=== PATIENT | male | born 1990 | race Caucasian/White ===

== ENCOUNTER 2016-06-26 01:24 | Inpatient (IN) | payer OTHER ==
[~2016-06-26] VITALS: Ht 180.3 cm; Wt 98.4 kg
[~2016-06-26 01:24] MED LIST: ASPI81TA9 PO; CARV6.252 PO; FURO20TA3 PO; LISI-338 PO; LOSA25TA PO; POTA10TA12 PO; SULF1TAB3 PO
--- NOTE | 2016-06-26 01:59 | ED.ADGEN ---
Past Medical History Past Medical History: CHF, Hypertension Additional Past Medical Histor: endocarditis Past Surgical History: No Surgical History Alcohol Use: None Drug Use: None Adult General Chief Complaint Chief Complaint: NAUSEA/VOMITING/DIARRHA HPI HPI Patient is a 25 year old male, with history of AICD pacemaker that was placed last month, congestive heart failure with a previously known EF of less than 20% , endocarditis, who presents emergency Department with a complaint of shortness of breath especially while lying flat, and cough with posttussive emesis over the past day. Patient denies any abdominal pain, denies any chest pain, denies any weakness numbness or tingling, denies any nausea, states that he is experiencing similar symptoms previously when he has had exacerbations of his congestive heart failure, but is uncertain if this is with tapping at this time. He denies any fevers or chills, any focal weakness in this or tingling, any injuries, any missed doses of medication, any new medications, any drugs alcohol or cigarettes. No swelling extremities, no history of DVT or PE. Review of Systems Review of Systems Constitutional: Denies fever or chills. [] Eyes: Denies change in visual acuity. [] HENT: Denies nasal congestion or sore throat. [] Respiratory: Cough, shortness of breath, posttussive emesis. [] Cardiovascular: Denies chest pain or edema. [] GI: Denies abdominal pain, nausea, vomiting, bloody stools or diarrhea. [] : Denies dysuria. [] Musculoskeletal: Denies back pain or joint pain. [] Integument: Denies rash. [] Neurologic: Denies headache, focal weakness or sensory changes. [] Endocrine: Denies polyuria or polydipsia. [] Lymphatic: Denies swollen glands. [] Psychiatric: Denies depression or anxiety. [] Allergies Allergies Allergies Coded Allergies Type Severity Reaction Last Updated Verified lisinopril Adverse Reaction Intermediate COUGH 05/10/16 Yes Physical Exam Physical Exam Constitutional: Well developed, well nourished, slightly anxious, non-toxic appearance. [] HENT: Normocephalic, atraumatic, bilateral external ears normal, oropharynx moist, no oral exudates, nose normal. [] Eyes: PERRLA, EOMI, conjunctiva normal, no discharge. [] Neck: Normal range of motion, no tenderness, supple, no stridor. [] Cardiovascular:Heart rate regular rhythm, no murmur , S1, S2, rubs or gallops. No chest or crepitus or tenderness. [] Lungs & Thorax: Bilateral breath sounds clear to auscultation, no wheezing rhonchi or rales. [] Abdomen: Bowel sounds normal, soft, no tenderness, no masses, no pulsatile masses. [] Skin: Warm, dry, no erythema, no rash. [] Back: No tenderness, no CVA tenderness. [] Extremities: No tenderness, no cyanosis, no clubbing, ROM intact, no edema. Negative Homans sign. [] Neurologic: Alert and oriented X 3, normal motor function, normal sensory function, no focal deficits noted. [] Psychologic: Affect normal, judgement normal, mood normal. [] Current Patient Data Vital Signs Vital Signs Date Time Temp Pulse Resp B/P Pulse Ox O2 Delivery O2 Flow Rate FiO2 06/26/16 01:35 98.2 111 26 150/88 100 Room Air 98.2 Lab Values Laboratory Tests Test 06/26/16 01:45 06/26/16 01:53 06/26/16 02:07 Sodium Level 137mmol/L (136-145) Potassium Level 3.6mmol/L (3.5-5.1) Chloride Level 99mmol/L (98-107) Carbon Dioxide Level 29mmol/L (21-32) Anion Gap 9 (6-14) Blood Urea Nitrogen 12mg/dL (8-26) Creatinine 1.0mg/dL (0.7-1.3) Estimated GFR (Cockcroft-Gault) 92.6 BUN/Creatinine Ratio 12 (6-20) Glucose Level 129mg/dL (70-99) H Calcium Level 9.0mg/dL (8.5-10.1) Total Bilirubin 1.6mg/dL (0.2-1.0) H Aspartate Amino Transferase (AST) 24U/L (15-37) Alanine Aminotransferase (ALT) 27U/L (16-63) Alkaline Phosphatase 75U/L (46-116) Troponin I Quantitative 0.021ng/mL (0.000-0.055) NE-Vjx-S-Type Natriuretic Peptide 44698gs/mL (0-124) H Total Protein 7.7g/dL (6.4-8.2) Albumin 3.5g/dL (3.4-5.0) Albumin/Globulin Ratio 0.8 (1.0-1.7) L Lipase 152U/L (73-393) White Blood Count 14.0x10^3/uL (4.0-11.0) H Red Blood Count 5.14x10^6/uL (4.30-5.70) Hemoglobin 13.0g/dL (13.0-17.5) Hematocrit 40.7% (39.0-53.0) Mean Corpuscular Volume 79fL (79-100) Mean Corpuscular Hemoglobin 25pg (25-35) Mean Corpuscular Hemoglobin Concent 32g/dL (31-37) Red Cell Distribution Width 16.3% (11.5-14.5) H Platelet Count 323x10^3/uL (140-400) Neutrophils (%) (Auto) 75% (31-73) H Lymphocytes (%) (Auto) 18% (24-48) L Monocytes (%) (Auto) 7% (0-9) Eosinophils (%) (Auto) 0% (0-3) Basophils (%) (Auto) 0% (0-3) Neutrophils # (Auto) 10.5x10^3uL (1.8-7.7) H Lymphocytes # (Auto) 2.5x10^3/uL (1.0-4.8) Monocytes # (Auto) 1.0x10^3/uL (0.0-1.1) Eosinophils # (Auto) 0.0x10^3/uL (0.0-0.7) Basophils # (Auto) 0.0x10^3/uL (0.0-0.2) Urine Collection Type Unknown Urine Color Anny Urine Clarity Clear Urine pH 5.5 Urine Specific [place] >=1.030 Urine Protein >=300mg/dL (NEG-TRACE) Urine Glucose (UA) Negativemg/dL (NEG) Urine Ketones (Stick) Tracemg/dL (NEG) Urine Blood Trace (NEG) Urine Nitrite Negative (NEG) Urine Bilirubin Small (NEG) Urine Urobilinogen Dipstick 2.0mg/dL (0.2 mg/dL) Urine Leukocyte Esterase Negative (NEG) Urine RBC Occ/HPF (0-2) Urine WBC Occ/HPF (0-4) Urine Squamous Epithelial Cells Mod/LPF Urine Bacteria Many/HPF (0-FEW) Urine Hyaline Casts Many/HPF Urine Mucus Mod/LPF Influenza Type A Antigen Negative (NEGATIVE) Influenza Type B Antigen Negative (NEGATIVE) Laboratory Tests 06/26/16 01:53 Laboratory Tests 06/26/16 01:45 EKG EKG EC: Sinus tachycardia, heart rate 109 bpm, contour abnormalities noted in the anterior and lateral leads, left ventricle hypertrophy noted, with T- wave inversions and ST depression noted in V5 and V6, no ST elevations noted, QTc of 435, NM 152, QRS of 104. Abnormal ECG, as interpreted by me. Unable to compare to prior. [] Radiology/Procedures Radiology/Procedures Chest x-ray: One view: AICD in place, with significant cardiomegaly, cephalization, consistent with congestive heart failure. No pneumothorax, no bone abnormalities. As interpreted by me. Course & Med Decision Making Course & Med Decision Making Pertinent Labs and Imaging studies reviewed. (See chart for details) Patient's complaint of orthopnea, in conjunction with his examination, laboratory studies with a BNP of greater than 13,000 and x-ray consistent with cephalization, consistent with CHF exacerbation. Patient noted to have mildly elevated bilirubin, may be consistent with his underlying CHF, I did discuss this with patient, he takes Lasix 20 mg daily, total 40mg IV was given in the ED , he is agreeable for patient to the hospital for additional evaluation and monitoring, is resting comfortably at this time, oxygen saturation and heart rate are stable on the monitor. Will admit to the cardiac telemetry floor, with consultation placed for Dr. Rojas, who has seen the patient previously, although his recent AICD placement occurred at [facility]. Findings as above discussed with Dr. Casillas, patient accepted to his service as a full admission to the cardiac telemetry floor, with bridge orders placed at stated. Patient remained stable and comfortable during his ED course, transfer to the floor without issue. Dragon Disclaimer Dragon Disclaimer This electronic medical record was generated, in whole or in part, using a voice recognition dictation system. Departure Impression: Primary Impression: CHF exacerbation Disposition: ADMITTED INPATIENT Admitting Physician: Roni Casillas Condition: IMPROVED Problem Qualifiers Primary Impression: CHF exacerbation Congestive heart failure type: unspecified congestive heart failure type Qualified Code: I50.9 - Heart failure, unspecified MILY LANIER DO Jun 26, 2016 01:59
[2016-06-26 02:02] LABS: BASO % 0 % (0-3); EOS % 0 % (0-3); HEMATOCRIT 40.7 % (39.0-53.0); LYMPH # 2.5 x10^3/uL (1.0-4.8); LYMPH % 18 % (24-48); MEAN CORPUSCULAR HEMOGLOBIN 25 pg (25-35); MEAN CORPUSCULAR HGB CONC 32 g/dL (31-37); MEAN CORPUSCULAR VOLUME 79 fL (79-100); MONO % 7 % (0-9); NEUT % 75 % (31-73); PLATELET COUNT 323 x10^3/uL (140-400); RED BLOOD COUNT 5.14 x10^6/uL (4.30-5.70); RED CELL DISTRIBUTION WIDTH 16.3 % (11.5-14.5)
[2016-06-26 02:28] LABS: GFR 92.6; POTASSIUM 3.6 mmol/L (3.5-5.1)
[2016-06-26 02:33] LABS: ALBUMIN 3.5 g/dL (3.4-5.0); ALBUMIN/GLOBULIN RATIO 0.8 (1.0-1.7); TOTAL BILIRUBIN 1.6 mg/dL (0.2-1.0); TOTAL PROTEIN 7.7 g/dL (6.4-8.2)
[2016-06-26 02:43] LABS: BILIRUBIN,URINE SMALL (NEG); GLUCOSE,URINE NEGATIVE (NEG); NITRITE,URINE NEGATIVE (NEG); PH,URINE 5.5; PROTEIN,URINE >=300 mg/dL (NEG-TRACE)
[2016-06-26 02:54] LABS: OBC FLU VALID
[2016-06-26 03:14] LABS: BACTERIA,URINE MANY /HPF (0-FEW); RBC,URINE OCC /HPF (0-2); SQUAMOUS EPITHELIAL CELL,UR MOD /LPF; WBC,URINE OCC /HPF (0-4)
[2016-06-26] MEDS ORDERED: FUROSEMIDE 40 MG/4 ML VIAL IVP ONE (03:30)
[2016-06-26] MEDS ORDERED: ACETAMINOPHEN 325 MG TABLET. PO PRN ×2 (04:30→13:30)
[2016-06-26] MEDS ORDERED: ONDANSETRON PF 4 MG/2 ML VIAL. IV PRN ×2 (04:30→13:30)
[2016-06-26 04:45] VITALS: BP 126/87
[2016-06-26] MEDS ORDERED: METO100T11 PO (05:07)
[2016-06-26] MEDS ORDERED: DIGO125T PO (05:07)
[2016-06-26 07:00] VITALS: BP 121/76
--- NOTE | 2016-06-26 07:25 | ACF ---
Admission Forms Criteria HEART FAILURE: COMMON COMPLICATIONS Clinical Indications for Inpatient Care (Place 'X' for any and all applicable criteria): Ongoing inpatient care may be indicated for heart failure with ANY ONE of the following (1)(2)(3)(4)(5): [ ]I. Ongoing need for care for primary condition requiring frequent therapy adjustments because of changes in cardiac function (eg, drug dosage changes for drugs that are renally metabolized) [ ]II. New-onset heart failure [ ]III. Heart failure with decreased urine output not responsive to attempts to optimize volume status [ ]IV. Acute cardiac ischemia causing or associated with failure [X]V. Complications of heart failure, including ANY ONE of the following: [ ]a) Pericardial effusion [ ]b) Symptomatic pleural effusion [ ]c) O2 saturation <90% or PO2 < 60 mm Hg (8.0 kPa) on room air or require baseline supplemental O2 [ ]d) Tachypnea [X]e) Dyspnea [ ]f) Syncope [ ]g) Change in mental status [ ]h) Acute renal insufficiency that is severe (reduction of more than 50% in estimated glomerular filtration rate from baseline) or progressive reduction of more than 25% in estimated glomerular filtration rate from baseline, with creatinine continuing to rise) [ ]i) Hemodynamic instability [ ]j) Anasarca [ ]k) Clinically significant metabolic abnormalities due to heart failure (eg, new-onset metabolic acidosis) Extended stay beyond goal length of stay for primary condition may be needed until ALL of the following are present(1)(3): [ ]a) Stable and effective diuretic regimen established (or patient on stable dialysis regimen if in chronic renal failure) [ ]b) Breathing comfortably at rest [ ]c) Saturation of arterial oxygen greater than 90% or at acceptable baseline [ ]d) Pulmonary edema absent or improved [ ]e) Hemodynamic stability [ ]f) Volume status acceptable on oral medication [ ]g) Peripheral or sacral edema absent or improved [ ]h) Renal function stable and manageable at a lower level of care [ ]i) Complications (eg, pleural effusion) resolved or manageable at a lower level of care [ ]j) Patient or caregiver has received written discharge instructions or educational material addressing activity level, diet, discharge medications, follow-up appointment, weight monitoring, and what to do if symptoms worsen The original [facility] content created by [employer] has been revised. The portions of the content which have been revised are identified through the use of italic text or in bold, and [facility] has neither reviewed nor approved the modified material.All other unmodified content is copyright [facility]. Please see references footnoted in the original [facility] edition 2016 Admission Criteria Met?: Yes CINDY PONCE Jun 26, 2016 07:25
[2016-06-26] MEDS ORDERED: DIGOXIN 125 MCG TABLET PO SCH (10:00)
[2016-06-26] MEDS ORDERED: METOPROLOL SUCC 24HR ER 100 MG TAB.ER.24H. PO SCH (10:00)
[2016-06-26] MEDS ORDERED: FUROSEMIDE 20 MG TABLET PO SCH (10:00)
[2016-06-26] MEDS ORDERED: ASPIRIN ENTERIC COATED 81 MG TABLET.DR. PO SCH (10:00)
[2016-06-26] MEDS ORDERED: LOSARTAN POTASSIUM 25 MG TABLET. PO SCH (10:00)
[2016-06-26] MEDS ORDERED: POTASSIUM CHLORIDE 10 MEQ TABLET.ER. PO SCH (10:00)
--- NOTE | 2016-06-26 10:08 | RAD ---
AP portable chest radiograph 06/26/2016 Clinical History: Shortness of breath. An AP portable erect digital radiograph of the chest was obtained. Comparison study is dated 05/10/2016. A pacemaker has been placed to overlie the left anterior chest. A lead extends to overlie the right ventricle of the heart. The cardiac silhouette is moderately enlarged. The thoracic aorta is minimally tortuous. Increased opacity is seen involving the inferior aspect of the right lower lobe consistent with atelectasis and/or infiltrate. No pneumothorax or pleural effusion is seen. The osseous structures are unchanged. Impression: 1. Moderate cardiomegaly. 2. Right lower lobe atelectasis and or infiltrate.
[2016-06-26 11:00] VITALS: BP 105/72
--- NOTE | 2016-06-26 11:22 | PDOC2 ---
CARDIAC CONSULT DATE OF CONSULT Date of Consult DATE: 06/26/16 TIME: 11:18 REASON FOR CONSULT Reason for Consult: CHF exacerbation REFERRING PHYSICIAN Referring Physician: Dr. Lance Cabral SOURCE Source: Chart review, Patient HISTORY OF PRESENT ILLNESS HISTORY OF PRESENT ILLNESS 25 year old male with NICMP and LVEF < 20% previously referred to [facility]. Had ICD implanted there in the last 4 weeks. Four day history of chest pain through entire chest, vomiting, and malaise. States he was not going to call [facility] until this afternoon to arrange evaluation/follow up care. Noted that patient's "story" has varied with each provider that has questioned him. Subsequently stated CP was sharp and at ICD implantation site. Does not weigh at home. NT-proBNP of 13,872 with normal troponin levels. Now denies CP. PAST MEDICAL HISTORY Cardiovascular: CHF (chronic systolic), HTN, [place] (age 18 in [facility]), Other (NICMP - LVEF < 20%; ICD implanted @ [facility]) PAST SURGICAL HISTORY Past Surgical History: Pacemaker (ICD - brand unknown) FAMILY HISTORY Family History: Heart Disease, Hypertension, Hypothyroidism SOCIAL HISTORY Smoke: No ALCOHOL: none Drugs: None Lives: with Family CURRENT MEDICATIONS CURRENT MEDICATIONS Current Medications Medications (Trade) Dose Ordered Sig/Heather Route PRN Reason Start Time Stop Time Status Last Admin Dose Admin Furosemide (Lasix) 40 mg 1X ONCE IVP 06/26/16 03:30 06/26/16 03:31 DC 06/26/16 03:20 Aspirin (Ecotrin) 81 mg DAILYWBKFT PO 06/26/16 10:00 06/26/16 09:59 Digoxin (Lanoxin) 125 mcg DAILY PO 06/26/16 10:00 06/26/16 09:59 Furosemide (Lasix) 40 mg DAILY PO 06/26/16 10:00 06/26/16 09:59 Losartan Potassium (Cozaar) 25 mg DAILY PO 06/26/16 10:00 06/26/16 10:00 Metoprolol Succinate (Toprol Xl) 100 mg DAILY PO 06/26/16 10:00 06/26/16 09:59 Potassium Chloride (Klor-Con) 10 meq BIDWMEALS PO 06/26/16 10:00 06/26/16 09:59 ALLERGIES ALLERGIES: Coded Allergies: lisinopril (Verified Adverse Reaction, Intermediate, COUGH, 05/10/16) VITALS VITALS Vital Signs Date Time Temp Pulse Resp B/P Pulse Ox O2 Delivery O2 Flow Rate FiO2 06/26/16 10:00 88 121/76 06/26/16 07:00 97.3 16 94 Room Air 97.3 LABS Lab: Laboratory Tests Test 06/26/16 01:45 06/26/16 01:53 06/26/16 02:07 06/26/16 08:00 Sodium Level 137mmol/L (136-145) Potassium Level 3.6mmol/L (3.5-5.1) Chloride Level 99mmol/L (98-107) Carbon Dioxide Level 29mmol/L (21-32) Anion Gap 9 (6-14) Blood Urea Nitrogen 12mg/dL (8-26) Creatinine 1.0mg/dL (0.7-1.3) Estimated GFR (Cockcroft-Gault) 92.6 BUN/Creatinine Ratio 12 (6-20) Glucose Level 129mg/dL (70-99) Calcium Level 9.0mg/dL (8.5-10.1) Total Bilirubin 1.6mg/dL (0.2-1.0) Aspartate Amino Transf (AST/SGOT) 24U/L (15-37) Alanine Aminotransferase (ALT/SGPT) 27U/L (16-63) Alkaline Phosphatase 75U/L (46-116) Troponin I Quantitative 0.021ng/mL (0.000-0.055) 0.017ng/mL (0.000-0.055) QR-Cir-I-Type Natriuretic Peptide 59147op/mL (0-124) Total Protein 7.7g/dL (6.4-8.2) Albumin 3.5g/dL (3.4-5.0) Albumin/Globulin Ratio 0.8 (1.0-1.7) Lipase 152U/L (73-393) White Blood Count 14.0x10^3/uL (4.0-11.0) Red Blood Count 5.14x10^6/uL (4.30-5.70) Hemoglobin 13.0g/dL (13.0-17.5) Hematocrit 40.7% (39.0-53.0) Mean Corpuscular Volume 79fL (79-100) Mean Corpuscular Hemoglobin 25pg (25-35) Mean Corpuscular Hemoglobin Concent 32g/dL (31-37) Red Cell Distribution Width 16.3% (11.5-14.5) Platelet Count 323x10^3/uL (140-400) Neutrophils (%) (Auto) 75% (31-73) Lymphocytes (%) (Auto) 18% (24-48) Monocytes (%) (Auto) 7% (0-9) Eosinophils (%) (Auto) 0% (0-3) Basophils (%) (Auto) 0% (0-3) Neutrophils # (Auto) 10.5x10^3uL (1.8-7.7) Lymphocytes # (Auto) 2.5x10^3/uL (1.0-4.8) Monocytes # (Auto) 1.0x10^3/uL (0.0-1.1) Eosinophils # (Auto) 0.0x10^3/uL (0.0-0.7) Basophils # (Auto) 0.0x10^3/uL (0.0-0.2) Urine Collection Type Unknown Urine Color Anny Urine Clarity Clear Urine pH 5.5 Urine Specific [place] >=1.030 Urine Protein >=300mg/dL (NEG-TRACE) Urine Glucose (UA) Negativemg/dL (NEG) Urine Ketones (Stick) Tracemg/dL (NEG) Urine Blood Trace (NEG) Urine Nitrite Negative (NEG) Urine Bilirubin Small (NEG) Urine Urobilinogen Dipstick 2.0mg/dL (0.2 mg/dL) Urine Leukocyte Esterase Negative (NEG) Urine RBC Occ/HPF (0-2) Urine WBC Occ/HPF (0-4) Urine Squamous Epithelial Cells Mod/LPF Urine Bacteria Many/HPF (0-FEW) Urine Hyaline Casts Many/HPF Urine Mucus Mod/LPF Influenza Type A Antigen Negative (NEGATIVE) Influenza Type B Antigen Negative (NEGATIVE) ECHOCARDIOGRAM ECHOCARDIOGRAM 04/22/2016: TTE: The Left Ventricle is moderately dilated. Left ventricle ejection fraction is severely impaired. The Ejection Fraction is <20%. There is severe global hypokinesis There is no significant aortic valvular stenosis. Doppler and Color Flow revealed no significant aortic regurgitation. Doppler and Color Flow revealed mild to moderate mitral regurgitation. Doppler and Color Flow revealed mild tricuspid regurgitation. The PA pressure was estimated at 34 mmHg. ASSESSMENT/PLAN ASSESSMENT/PLAN 1. chronic systolic HF with depressed LV function; EF < 20% no crackles, no edema and no evidence of CHF on CXR compensated - continue usual medical management 2. non-ischemic CMP now with ICD, brand unknown intermittent sharp pain at pocket site; site healing well; no evidence of erythema, warmth, ecchymosis or drainage continue medical management 3. HTN continue medications Agreeable with discharge when planned by primary service Extensive conversation with pt regarding immediate notification of Heart Failure Clinic @ [facility] of any symptoms; advised contacting during week, rather than waiting to the weekend Follow up @ [facility] advised for next week Recommended ICD implant site evaluation by implanting physician Problems: CHINO ORR APRN Jun 26, 2016 11:22
--- NOTE | 2016-06-26 13:31 | PDOC1 ---
History and Physical Date of Admission Date of Admission 06/26/16 Identification/Chief Complaint Chief Complaint sob Problems: Source Source: Chart review, Patient History of Present Illness History of Present Illness HPI HPI Patient is a 25 year old male, with history of AICD pacemaker that was placed last month, congestive heart failure with a previously known EF of less than 20% , endocarditis, who presents emergency Department with a complaint of shortness of breath especially while lying flat. Pt looks sleepy today. He said he also has some vomiting yesterday, PT sob better now with lasix 40MG IV in ER, home dose 20mg daily, saying he is compiant to his meds. denies chest pain. Past Medical History Cardiovascular: CHF (chronic systolic), HTN, NM (age 18 in [facility]), Other (NICMP - LVEF < 20%; ICD implanted @ [facility]) Pulmonary: No pertinent hx CENTRAL NERVOUS SYSTEM: Other GI: No pertinent hx Heme/Onc: No pertinent hx Hepatobiliary: No pertinent hx Psych: No pertinent hx Rheumatologic: No pertinent hx Infectious disease: No pertinent hx Renal/: No pertinent hx Endocrine: No pertinent hx Past Surgical History Past Surgical History: Pacemaker (ICD - brand unknown) Family History Family History: Heart Disease, Hypertension, Hypothyroidism Social History Smoke: No ALCOHOL: none Drugs: None Current Problem List Problem List Problems Medical Problems: (1) CHF exacerbation Status: Acute Current Medications Current Medications Current Medications Medications (Trade) Dose Ordered Sig/Heather Start Time Stop Time Status Last Admin Dose Admin Acetaminophen (Tylenol) 650 mg PRN Q4HRS PRN 06/26/16 04:30 06/27/16 04:29 Aspirin (Ecotrin) 81 mg DAILYWBKFT 06/26/16 10:00 06/26/16 09:59 81 MG Digoxin (Lanoxin) 125 mcg DAILY 06/26/16 10:00 06/26/16 09:59 125 MCG Furosemide (Lasix) 40 mg DAILY 06/26/16 10:00 06/26/16 09:59 40 MG Losartan Potassium (Cozaar) 25 mg DAILY 06/26/16 10:00 06/26/16 10:00 25 MG Metoprolol Succinate (Toprol Xl) 100 mg DAILY 06/26/16 10:00 06/26/16 09:59 100 MG Ondansetron HCl (Zofran) 4 mg PRN Q8HRS PRN 06/26/16 04:30 06/27/16 04:29 Potassium Chloride (Klor-Con) 10 meq BIDWMEALS 06/26/16 10:00 06/26/16 09:59 10 MEQ Allergies Allergies Allergies Coded Allergies Type Severity Reaction Last Updated Verified lisinopril Adverse Reaction Intermediate COUGH 05/10/16 Yes ROS Review of System CONSTITUTIONAL: No fever or chills EYES: No recent changes SKIN: No rash or itching CARDIOVASCULAR: No chest pain, syncope, palpitations, or edema RESPIRATORY: No SOB or cough GASTROINTESTINAL: No nausea, vomiting or abdominal pain NEUROLOGICAL: No headaches or weakness ENDOCRINE: No cold or heat intolerance GENITOURINARY: No urgency or frequency of urination MUSCULOSKELETAL: No back pain or joint pain LYMPHATICS: No enlarged lymph nodes PSYCHIATRIC: No anxiety or depression Physical Exam Physical Exam GEN.: No apparent distress. Alert and oriented. HEENT: Head is normocephalic, atraumatic NECK: Supple. LUNGS: Clear to auscultation. HEART: RRR, S1, S2 present. Peripheral pulses intact ABDOMEN: Soft, nontender. Positive bowel sounds. EXTREMITIES: Without any cyanosis. NEUROLOGIC: Normal speech, normal tone PSYCHIATRIC: Normal affect, normal mood. SKIN: No ulcerations Vitals Vitals Vital Signs Date Time Temp Pulse Resp B/P Pulse Ox O2 Delivery O2 Flow Rate FiO2 06/26/16 11:00 98.3 67 16 105/72 96 Room Air 98.3 Labs Labs Laboratory Tests Test 06/26/16 01:45 06/26/16 01:53 06/26/16 02:07 06/26/16 08:00 Sodium Level 137mmol/L (136-145) Potassium Level 3.6mmol/L (3.5-5.1) Chloride Level 99mmol/L (98-107) Carbon Dioxide Level 29mmol/L (21-32) Anion Gap 9 (6-14) Blood Urea Nitrogen 12mg/dL (8-26) Creatinine 1.0mg/dL (0.7-1.3) Estimated GFR (Cockcroft-Gault) 92.6 BUN/Creatinine Ratio 12 (6-20) Glucose Level 129mg/dL (70-99) Calcium Level 9.0mg/dL (8.5-10.1) Total Bilirubin 1.6mg/dL (0.2-1.0) Aspartate Amino Transf (AST/SGOT) 24U/L (15-37) Alanine Aminotransferase (ALT/SGPT) 27U/L (16-63) Alkaline Phosphatase 75U/L (46-116) Troponin I Quantitative 0.021ng/mL (0.000-0.055) 0.017ng/mL (0.000-0.055) VU-Zab-A-Type Natriuretic Peptide 31801jx/mL (0-124) Total Protein 7.7g/dL (6.4-8.2) Albumin 3.5g/dL (3.4-5.0) Albumin/Globulin Ratio 0.8 (1.0-1.7) Lipase 152U/L (73-393) White Blood Count 14.0x10^3/uL (4.0-11.0) Red Blood Count 5.14x10^6/uL (4.30-5.70) Hemoglobin 13.0g/dL (13.0-17.5) Hematocrit 40.7% (39.0-53.0) Mean Corpuscular Volume 79fL (79-100) Mean Corpuscular Hemoglobin 25pg (25-35) Mean Corpuscular Hemoglobin Concent 32g/dL (31-37) Red Cell Distribution Width 16.3% (11.5-14.5) Platelet Count 323x10^3/uL (140-400) Neutrophils (%) (Auto) 75% (31-73) Lymphocytes (%) (Auto) 18% (24-48) Monocytes (%) (Auto) 7% (0-9) Eosinophils (%) (Auto) 0% (0-3) Basophils (%) (Auto) 0% (0-3) Neutrophils # (Auto) 10.5x10^3uL (1.8-7.7) Lymphocytes # (Auto) 2.5x10^3/uL (1.0-4.8) Monocytes # (Auto) 1.0x10^3/uL (0.0-1.1) Eosinophils # (Auto) 0.0x10^3/uL (0.0-0.7) Basophils # (Auto) 0.0x10^3/uL (0.0-0.2) Urine Collection Type Unknown Urine Color Anny Urine Clarity Clear Urine pH 5.5 Urine Specific [place] >=1.030 Urine Protein >=300mg/dL (NEG-TRACE) Urine Glucose (UA) Negativemg/dL (NEG) Urine Ketones (Stick) Tracemg/dL (NEG) Urine Blood Trace (NEG) Urine Nitrite Negative (NEG) Urine Bilirubin Small (NEG) Urine Urobilinogen Dipstick 2.0mg/dL (0.2 mg/dL) Urine Leukocyte Esterase Negative (NEG) Urine RBC Occ/HPF (0-2) Urine WBC Occ/HPF (0-4) Urine Squamous Epithelial Cells Mod/LPF Urine Bacteria Many/HPF (0-FEW) Urine Hyaline Casts Many/HPF Urine Mucus Mod/LPF Influenza Type A Antigen Negative (NEGATIVE) Influenza Type B Antigen Negative (NEGATIVE) Laboratory Tests Test 06/26/16 01:45 06/26/16 01:53 06/26/16 02:07 06/26/16 08:00 Sodium Level 137mmol/L (136-145) Potassium Level 3.6mmol/L (3.5-5.1) Chloride Level 99mmol/L (98-107) Carbon Dioxide Level 29mmol/L (21-32) Anion Gap 9 (6-14) Blood Urea Nitrogen 12mg/dL (8-26) Creatinine 1.0mg/dL (0.7-1.3) Estimated GFR (Cockcroft-Gault) 92.6 BUN/Creatinine Ratio 12 (6-20) Glucose Level 129mg/dL (70-99) Calcium Level 9.0mg/dL (8.5-10.1) Total Bilirubin 1.6mg/dL (0.2-1.0) Aspartate Amino Transf (AST/SGOT) 24U/L (15-37) Alanine Aminotransferase (ALT/SGPT) 27U/L (16-63) Alkaline Phosphatase 75U/L (46-116) Troponin I Quantitative 0.021ng/mL (0.000-0.055) 0.017ng/mL (0.000-0.055) MN-Rej-Z-Type Natriuretic Peptide 91648st/mL (0-124) Total Protein 7.7g/dL (6.4-8.2) Albumin 3.5g/dL (3.4-5.0) Albumin/Globulin Ratio 0.8 (1.0-1.7) Lipase 152U/L (73-393) White Blood Count 14.0x10^3/uL (4.0-11.0) Red Blood Count 5.14x10^6/uL (4.30-5.70) Hemoglobin 13.0g/dL (13.0-17.5) Hematocrit 40.7% (39.0-53.0) Mean Corpuscular Volume 79fL (79-100) Mean Corpuscular Hemoglobin 25pg (25-35) Mean Corpuscular Hemoglobin Concent 32g/dL (31-37) Red Cell Distribution Width 16.3% (11.5-14.5) Platelet Count 323x10^3/uL (140-400) Neutrophils (%) (Auto) 75% (31-73) Lymphocytes (%) (Auto) 18% (24-48) Monocytes (%) (Auto) 7% (0-9) Eosinophils (%) (Auto) 0% (0-3) Basophils (%) (Auto) 0% (0-3) Neutrophils # (Auto) 10.5x10^3uL (1.8-7.7) Lymphocytes # (Auto) 2.5x10^3/uL (1.0-4.8) Monocytes # (Auto) 1.0x10^3/uL (0.0-1.1) Eosinophils # (Auto) 0.0x10^3/uL (0.0-0.7) Basophils # (Auto) 0.0x10^3/uL (0.0-0.2) Urine Collection Type Unknown Urine Color Anny Urine Clarity Clear Urine pH 5.5 Urine Specific [place] >=1.030 Urine Protein >=300mg/dL (NEG-TRACE) Urine Glucose (UA) Negativemg/dL (NEG) Urine Ketones (Stick) Tracemg/dL (NEG) Urine Blood Trace (NEG) Urine Nitrite Negative (NEG) Urine Bilirubin Small (NEG) Urine Urobilinogen Dipstick 2.0mg/dL (0.2 mg/dL) Urine Leukocyte Esterase Negative (NEG) Urine RBC Occ/HPF (0-2) Urine WBC Occ/HPF (0-4) Urine Squamous Epithelial Cells Mod/LPF Urine Bacteria Many/HPF (0-FEW) Urine Hyaline Casts Many/HPF Urine Mucus Mod/LPF Influenza Type A Antigen Negative (NEGATIVE) Influenza Type B Antigen Negative (NEGATIVE) VTE Prophylaxis Ordered VTE Prophylaxis Devices: Yes VTE Pharmacological Prophylaxi: Yes Assessment/Plan Assessment/Plan 1. acute systolic CHF exacerbation EF 20% 2. post ICD 3. NON Ischimic cardiomyopathy 4. HTN 5. H/O ENdocarditis plan 1. fu card 2. dc tmr if stable 3, on dig, losartan increase lasix to 40mg daily SHAWN BASS MD Jun 26, 2016 13:31
--- NOTE | 2016-06-26 14:23 | PDOC3 ---
Discharge Summary [facility] Date of Admission: Jun 26, 2016 Discharge Date: Jun 26, 2016 Admitting Diagnosis 1. acute systolic CHF exacerbation EF 20% 2. post ICD 3. NON Ischimic cardiomyopathy 4. HTN 5. H/O ENdocarditis Problems: Final Diagnosis Problems Medical Problems: (1) CHF exacerbation Status: Acute CONSULTS [place] Brief Hospital Course Patient is a 25 year old male, with history of AICD pacemaker that was placed last month, congestive heart failure with a previously known EF of less than 20% , endocarditis, who presents emergency Department with a complaint of shortness of breath especially while lying flat. Pt looks sleepy today. He said he also has some vomiting yesterday, PT sob better now with lasix 40MG IV in ER, home dose 20mg daily, saying he is compiant to his meds. denies chest pain. Pt improved with lasix 40mg iv x1 in ER, home lasix 20mg daily. pt has no SOB, LUNG sounds clear, cont same dose. dc home, dc time 35min Patient History: Family history: Cardiovascular disease (situation) grandfather Family history: Diabetes mellitus (situation) grandfather Family history: Hypertension (situation) grandfather Problems: Disposition home CONDITION AT DISCHARGE: Improved Diet cardiac Scheduled Aspirin (Aspirin Ec) 81 MG PO DAILYWBKFT Digoxin (Digoxin) 1 TAB PO DAILY (Reported) Furosemide (Furosemide) 20 MG PO DAILY Losartan Potassium (Cozaar) 25 MG PO DAILY Metoprolol Succinate (Metoprolol Succinate ( Xl )) 1 TAB PO DAILY (Reported) Potassium Chloride (Klor-Con M10) 10 MEQ PO BID Follow Up pcp and card in 2weeks SHAWN BASS MD Jun 26, 2016 14:23
--- NOTE | 2016-06-26 14:55 | EKG ---
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
[2016-06-26 15:00] VITALS: BP 108/73
== END 2016-06-26 17:02 | disposition home or self-care (01) | DRG 293 ==
LOC: ER 01:24 → 2 SOUTH 03:13
PROVIDERS: ADMIT Internal Medicine; ATTEND Internal Medicine
DX: I11.0 Hypertensive heart disease with heart failure (principal); Z95.810 Presence of automatic (implantable) cardiac defibrillator; I50.23 Acute on chronic systolic (congestive) heart failure; R11.2 Nausea with vomiting, unspecified; I42.9 Cardiomyopathy, unspecified; I25.2 Old myocardial infarction; Z82.49 Family history of ischemic heart disease and other diseases of the circulatory system; Z83.49 Family history of other endocrine, nutritional and metabolic diseases; Z83.3 Family history of diabetes mellitus; Z79.82 Long term (current) use of aspirin; Z98.890 Other specified postprocedural states; Z79.899 Other long term (current) drug therapy; Z88.8 Allergy status to other drugs, medicaments and biological substances
CPT/HCPCS: 36415; 71010; 80053; 81001; 83690; 83880; 84484; 85027; 87086; 87804; 93005; 96374; J1940; 99285-25

== ENCOUNTER 2018-05-21 20:52 | Inpatient (IN) | payer OTHER ==
[~2018-05-21] VITALS: Ht 177.8 cm; Wt 125.9 kg
[~2018-05-21 20:52] MED LIST changes: +ASPI-612 PO; -ASPI81TA9 PO; +CARV6.2511 PO; -CARV6.252 PO; +DIGO125T PO; +METO-247 PO; +SULF-143 PO; -SULF1TAB3 PO
[2018-05-21 21:24] LABS: BASO # 0.1 x10^3/uL (0.0-0.2); BASO % 1 % (0-3); EOS # 0.2 x10^3/uL (0.0-0.7); EOS % 2 % (0-3); HEMATOCRIT 38.8 % (39.0-53.0); HEMOGLOBIN 13.6 g/dL (13.0-17.5); LYMPH # 2.5 x10^3/uL (1.0-4.8); LYMPH % 23 % (24-48); MEAN CORPUSCULAR HEMOGLOBIN 29 pg (25-35); MEAN CORPUSCULAR HGB CONC 35 g/dL (31-37); MEAN CORPUSCULAR VOLUME 84 fL (79-100); MONO # 0.8 x10^3/uL (0.0-1.1); MONO % 7 % (0-9); NEUT # 7.4 x10^3uL (1.8-7.7); NEUT % 68 % (31-73); PLATELET COUNT 207 x10^3/uL (140-400); RED BLOOD COUNT 4.65 x10^6/uL (4.30-5.70); RED CELL DISTRIBUTION WIDTH 13.2 % (11.5-14.5); WHITE BLOOD COUNT 10.8 x10^3/uL (4.0-11.0)
[2018-05-21 21:35] LABS: CREATININE 0.9 mg/dL (0.7-1.3); GFR 102.8; POTASSIUM 3.6 mmol/L (3.5-5.1)
[2018-05-21 21:47] LABS: ALBUMIN 3.7 g/dL (3.4-5.0); ALBUMIN/GLOBULIN RATIO 0.9 (1.0-1.7); TOTAL BILIRUBIN 0.3 mg/dL (0.2-1.0); TOTAL PROTEIN 7.6 g/dL (6.4-8.2)
[2018-05-21 22:30] LABS: BILIRUBIN,URINE NEGATIVE (NEG); CLARITY,URINE CLEAR; COLOR,URINE YELLOW; NITRITE,URINE NEGATIVE (NEG); PROTEIN,URINE NEGATIVE (NEG-TRACE); UROBILINOGEN,URINE 0.2 mg/dL (0.2 mg/dL)
[2018-05-21 22:32] LABS: BARBITURATES NEG (NEG); BENZODIAZEPINES NEG (NEG); CANNABINOIDS NEG (NEG); COCAINE NEG (NEG); METHADONE NEG (NEG); OPIATES NEG (NEG); PHENCYCLIDINE NEG (NEG)
[2018-05-21 22:34] LABS: AMPHETAMINE/METHAMPHETAMINE NEG (NEG)
[2018-05-21 22:44] LABS: RBC,URINE 0 /HPF (0-2); WBC,URINE 0 /HPF (0-4)
[2018-05-21 22:45] LABS: BACTERIA,URINE 0 /HPF (0-FEW); SQUAMOUS EPITHELIAL CELL,UR OCC /LPF
--- NOTE | 2018-05-21 23:01 | RAD ---
RS Compliance Statement: One or more of the following individualized dose reduction techniques were utilized for this examination: 1. Automated exposure control 2. Adjustment of the mA and/or kV according to patient size 3. Use of iterative reconstruction technique CT HEAD WITHOUT CONTRAST History: SYNCOPE TODAY Comparison: None. Procedure: Axial images are obtained of the head from the skull base through the vertex without IV contrast. Findings: The ventricles and sulci are normal for the patient's age. No mass-effect, midline shift, hemorrhage, extra-axial fluid collection, or obvious acute infarction is identified. Basilar cisterns are patent. Bone windows demonstrate no acute calvarial abnormality. The visualized paranasal sinuses are clear. Mastoid air cells are well aerated. IMPRESSION: No acute intracranial abnormality. Electronically signed by: Peterson Suero MD (05/21/2018 10:57 PM) [facility]
[2018-05-21] MEDS ORDERED: IV NORMAL SALINE 500ML BAG 500 ML IV ONE (23:15)
[2018-05-21] MEDS ORDERED: ONDANSETRON PF 4 MG/2 ML VIAL. IV PRN (23:45)
--- NOTE | 2018-05-21 23:55 | PHYS DOC ---
Past Medical History Past Medical History: CHF, Hypertension Additional Past Medical Histor: endocarditis Past Surgical History: Other Additional Past Surgical Histo: PACEMAKER PLACEMENT Alcohol Use: None Drug Use: None Adult General Chief Complaint Chief Complaint: ALTERED MENTAL STATUS HPI HPI Patient is a 27 year old male who presents with somnolence, a history of heart failure and reported syncope. The patient was at the [employer] game today. His is the historian due to the patient's condition. The patient will not answer questions. He reportedly had a hot cocoa but does not drink alcohol or for taking any recreational drugs. She states that on the way home from the football game he started acting "strange". When he got home she was unable to arouse him. She states that they called EMS. He is currently arousable but will not wake up or fully communicate with us. The patient does have a significant history of heart failure with a pacemaker. His states they have no known reason for the heart failure but the condition started to few years ago. She states that he has been stable but he did report to the nurse that he hadn't taken any of his home meds for several days. Review of Systems Review of Systems Unable to obtain ROS due to patient's condition. Current Medications Current Medications Current Medications Medications (Trade) Dose Ordered Sig/Heather Start Time Stop Time Status Last Admin Dose Admin Ondansetron HCl (Zofran) 4 mg PRN Q8HRS PRN 05/21/18 23:45 05/22/18 23:44 Sodium Chloride 1,000 ml @ 100 mls/hr Q10H 05/21/18 23:45 05/22/18 23:44 Allergies Allergies Allergies Coded Allergies Type Severity Reaction Last Updated Verified lisinopril Adverse Reaction Intermediate COUGH 12/02/17 Yes Physical Exam Physical Exam Constitutional: Well developed, well nourished, sleeping Neck: Normal range of motion, no tenderness, supple, no stridor. [] Cardiovascular:Heart rate regular rhythm, no murmur [] Lungs & Thorax: Bilateral breath sounds clear to auscultation [] Abdomen: Bowel sounds normal, soft, no tenderness, no masses, no pulsatile masses. [] Skin: Warm, dry, no erythema, no rash. [] Back: No tenderness, no CVA tenderness. [] Extremities: No tenderness, no cyanosis, no clubbing, ROM intact, no edema. [] Neurologic: Extremely sleepy, unable to assess cranial nerves or motor function Psychologic: Unable to assess[] Current Patient Data Vital Signs Vital Signs Date Time Temp Pulse Resp B/P (MAP) Pulse Ox O2 Delivery O2 Flow Rate FiO2 05/21/18 21:15 98.2 83 22 167/77 (107) 99 Room Air 98.2 Lab Values Laboratory Tests Test 05/21/18 20:57 05/21/18 22:17 White Blood Count 10.8 x10^3/uL (4.0-11.0) Red Blood Count 4.65 x10^6/uL (4.30-5.70) Hemoglobin 13.6 g/dL (13.0-17.5) Hematocrit 38.8 % (39.0-53.0) L Mean Corpuscular Volume 84 fL (79-100) Mean Corpuscular Hemoglobin 29 pg (25-35) Mean Corpuscular Hemoglobin Concent 35 g/dL (31-37) Red Cell Distribution Width 13.2 % (11.5-14.5) Platelet Count 207 x10^3/uL (140-400) Neutrophils (%) (Auto) 68 % (31-73) Lymphocytes (%) (Auto) 23 % (24-48) L Monocytes (%) (Auto) 7 % (0-9) Eosinophils (%) (Auto) 2 % (0-3) Basophils (%) (Auto) 1 % (0-3) Neutrophils # (Auto) 7.4 x10^3uL (1.8-7.7) Lymphocytes # (Auto) 2.5 x10^3/uL (1.0-4.8) Monocytes # (Auto) 0.8 x10^3/uL (0.0-1.1) Eosinophils # (Auto) 0.2 x10^3/uL (0.0-0.7) Basophils # (Auto) 0.1 x10^3/uL (0.0-0.2) Sodium Level 139 mmol/L (136-145) Potassium Level 3.6 mmol/L (3.5-5.1) Chloride Level 102 mmol/L (98-107) Carbon Dioxide Level 27 mmol/L (21-32) Anion Gap 10 (6-14) Blood Urea Nitrogen 14 mg/dL (8-26) Creatinine 0.9 mg/dL (0.7-1.3) Estimated GFR (Cockcroft-Gault) 102.8 BUN/Creatinine Ratio 16 (6-20) Glucose Level 130 mg/dL (70-99) H Calcium Level 9.0 mg/dL (8.5-10.1) Total Bilirubin 0.3 mg/dL (0.2-1.0) Aspartate Amino Transferase (AST) 49 U/L (15-37) H Alanine Aminotransferase (ALT) 39 U/L (16-63) Alkaline Phosphatase 80 U/L (46-116) JB-Adk-I-Type Natriuretic Peptide 266 pg/mL (0-124) H Total Protein 7.6 g/dL (6.4-8.2) Albumin 3.7 g/dL (3.4-5.0) Albumin/Globulin Ratio 0.9 (1.0-1.7) L Urine Collection Type Unknown Urine Color Yellow Urine Clarity Clear Urine pH 6.0 Urine Specific [place] >=1.030 Urine Protein Negative mg/dL (NEG-TRACE) Urine Glucose (UA) Negative mg/dL (NEG) Urine Ketones (Stick) Negative mg/dL (NEG) Urine Blood Negative (NEG) Urine Nitrite Negative (NEG) Urine Bilirubin Negative (NEG) Urine Urobilinogen Dipstick 0.2 mg/dL (0.2 mg/dL) Urine Leukocyte Esterase Negative (NEG) Urine RBC 0 /HPF (0-2) Urine WBC 0 /HPF (0-4) Urine Squamous Epithelial Cells Occ /LPF Urine Bacteria 0 /HPF (0-FEW) Urine Mucus Marked /LPF Urine Opiates Screen Neg (NEG) Urine Methadone Screen Neg (NEG) Urine Barbiturates Neg (NEG) Urine Phencyclidine Screen Neg (NEG) Urine Amphetamine/Methamphetamine Neg (NEG) Urine Benzodiazepines Screen Neg (NEG) Urine Cocaine Screen Neg (NEG) Urine Cannabinoids Screen Neg (NEG) Urine Ethyl Alcohol Neg (NEG) Laboratory Tests 05/21/18 20:57 Laboratory Tests 05/21/18 20:57 EKG EKG [] Radiology/Procedures Radiology/Procedures []PATIENT: HERIBERTO STEENACCOUNT: [id number]#: [id number] : 1990 LOCATION: ER AGE: 27 SEX: M EXAM STATUS: REG ER ORD. PHYSICIAN: SHAILESH STEEL APRN REASON: syncopy today PROCEDURE: CT HEAD WO CONTRAST PQRS Compliance Statement: One or more of the following individualized dose reduction techniques were utilized for this examination: 1. Automated exposure control 2. Adjustment of the mA and/or kV according to patient size 3. Use of iterative reconstruction technique CT HEAD WITHOUT CONTRAST History: SYNCOPE TODAY Comparison: None. Procedure: Axial images are obtained of the head from the skull base through the vertex without IV contrast. Findings: The ventricles and sulci are normal for the patient's age. No mass-effect, midline shift, hemorrhage, extra-axial fluid collection, or obvious acute infarction is identified. Basilar cisterns are patent. Bone windows demonstrate no acute calvarial abnormality. The visualized paranasal sinuses are clear. Mastoid air cells are well aerated. IMPRESSION: No acute intracranial abnormality. Electronically signed by: Peterson Suero MD (05/21/2018 10:57 PM) [facility] DICTATED and SIGNED BY: PETERSON SUERO MD DATE: 05/21/18 Chest x-ray shows no acute cardiopulmonary process. This x-ray was read in the emergency department by Dr. Curtis. Course & Med Decision Making Course & Med Decision Making Pertinent Labs and Imaging studies reviewed. (See chart for details) []The patient is being admitted to Dr. Hernandez's service. Dr. Manzo he has been consulted. Dragon Disclaimer Dragon Disclaimer This electronic medical record was generated, in whole or in part, using a voice recognition dictation system. Departure Departure Impression: Primary Impression: Heart failure Additional Impressions: Fatigue Somnolence Disposition: ADMITTED INPATIENT Admitting Physician: Sonya Hernandez Condition: GOOD Referrals: CRYSTAL CHIU MD (PCP) Problem Qualifiers SHAILESH STEEL APRN May 21, 2018 23:55
--- NOTE | 2018-05-22 02:54 | NUR ---
Pt. just arrived from ED w/ CHF exacerbation and Fatigue. He is very sleepy but orientated. @ bedside.
[2018-05-22 03:00] VITALS: BP 133/78
[2018-05-22] MEDS: IV NORMAL SALINE 1000ML BAG 1,000 ML IV SCH ×2 (03:13→09:45)
[2018-05-22] MEDS ORDERED: LEXAPRO20 MG PO (04:44)
[2018-05-22] MEDS ORDERED: TORS20TA2 PO (04:44)
[2018-05-22] MEDS ORDERED: SPIR25TA PO (04:44)
[2018-05-22] MEDS ORDERED: SACU1TAB4 PO (04:44)
--- NOTE | 2018-05-22 06:54 | EKG ---
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
[2018-05-22 07:00] VITALS: BP 136/71
--- NOTE | 2018-05-22 07:49 | RAD ---
EXAM: AP View of the chest DATE: 05/21/2018 9:16 PM INDICATION: SYNCOPE COMPARISON: 06/26/2016 FINDINGS: Cardiac generator pack obscures a portion of the left chest with single lead in stable position. Stable cardiomegaly. Mediastinal and hilar contours are stable. No focal parenchymal airspace opacity. No pleural effusion or pneumothorax. IMPRESSION: 1. No radiographic evidence for acute cardiopulmonary process. Electronically signed by: Travis Espinal MD (05/22/2018 7:44 AM) [facility]
--- NOTE | 2018-05-22 08:23 | PDOC2 ---
DUC SANDHU MANAGER COMMUNITY 05/22/18 0823: CARDIAC CONSULT DATE OF CONSULT Date of Consult DATE: 05/22/18 TIME: 08:16 REASON FOR CONSULT Reason for Consult: Heart failure Severe fatigue REFERRING PHYSICIAN Referring Physician: Dr. Hoang SOURCE Source: Chart review, Patient HISTORY OF PRESENT ILLNESS HISTORY OF PRESENT ILLNESS This is a 27 yo male, with a history of severe NICM with an EF of 15-20%, who presented secondary to altered mental status. Patient was on the way home from dinner after the [employer] game when he started acting "strange." reports he became extremely drowsy and had difficulty staying awake. When they got home, patient said he was going to go to bed. reports he made it downstairs to the couch. She found his asleep on the couch and was unable to arouse him and called EMS. Remains somnolent this am. denies any ETOH or recreational drug use. No reports of chest pain, shortness of breath, LE edema, dizziness, HICKEY, fevers or illness. denies any changes at home. Only complaints he has had is a sore in his mouth that began the day previous. reports that she sets ups his medications. He did not take his diuretics yesterday morning as he did not want to be urinating multiple times during the game; otherwise, has been compliant with medications. PAST MEDICAL HISTORY Cardiovascular: CHF (NICM ), HTN Pulmonary: No pertinent hx CENTRAL NERVOUS SYSTEM: Other (no pertinent hx) GI: No pertinent hx Heme/Onc: No pertinent hx Hepatobiliary: No pertinent hx Psych: No pertinent hx Musculoskeletal: Other (no pertinent hx) Rheumatologic: No pertinent hx Infectious disease: No pertinent hx ENT: No pertinent hx Renal/: No pertinent hx Endocrine: No pertinent hx Dermatology: No pertinent hx PAST SURGICAL HISTORY Past Surgical History: Pacemaker (AICD (Medtronic)) FAMILY HISTORY Family History: Diabetes, Heart Disease, Hypertension SOCIAL HISTORY Smoke: No ALCOHOL: none Drugs: None Lives: with Family CURRENT MEDICATIONS CURRENT MEDICATIONS Current Medications Medications (Trade) Dose Ordered Sig/Heather Route PRN Reason Start Time Stop Time Status Last Admin Dose Admin Sodium Chloride 500 ml @ 500 mls/hr 1X ONCE IV 05/21/18 23:15 05/22/18 00:14 DC 05/21/18 23:44 Sodium Chloride 1,000 ml @ 100 mls/hr Q10H IV 05/21/18 23:45 05/22/18 23:44 05/22/18 03:13 ALLERGIES ALLERGIES: Coded Allergies: lisinopril (Verified Adverse Reaction, Intermediate, COUGH, 12/02/17) ROS Review of System 14 point ROS conducted with pertinent positives noted above in HPI. PHYSICAL EXAM General: No acute distress, Other HEENT: Atraumatic, Mucous membr. moist/pink Lungs: Clear to auscultation, Normal air movement Heart: Regular rate, Normal S1, Normal S2, Other (2/6 systolic murmur ) Abdomen: Soft, No tenderness Extremities: No edema, Normal pulses Skin: No significant lesion Neuro: Normal speech, Sensation intact Psych/Mental Status: Mood NL, Other (drowsy) MUSCULOSKELETAL: No swelling VITALS VITALS Vital Signs Date Time Temp Pulse Resp B/P (MAP) Pulse Ox O2 Delivery O2 Flow Rate FiO2 05/22/18 04:16 Room Air 05/22/18 03:00 98.4 93 17 133/78 (96) 98 98.4 LABS Lab: Laboratory Tests Test 05/21/18 20:57 05/21/18 22:17 White Blood Count 10.8 x10^3/uL (4.0-11.0) Red Blood Count 4.65 x10^6/uL (4.30-5.70) Hemoglobin 13.6 g/dL (13.0-17.5) Hematocrit 38.8 % (39.0-53.0) Mean Corpuscular Volume 84 fL (79-100) Mean Corpuscular Hemoglobin 29 pg (25-35) Mean Corpuscular Hemoglobin Concent 35 g/dL (31-37) Red Cell Distribution Width 13.2 % (11.5-14.5) Platelet Count 207 x10^3/uL (140-400) Neutrophils (%) (Auto) 68 % (31-73) Lymphocytes (%) (Auto) 23 % (24-48) Monocytes (%) (Auto) 7 % (0-9) Eosinophils (%) (Auto) 2 % (0-3) Basophils (%) (Auto) 1 % (0-3) Neutrophils # (Auto) 7.4 x10^3uL (1.8-7.7) Lymphocytes # (Auto) 2.5 x10^3/uL (1.0-4.8) Monocytes # (Auto) 0.8 x10^3/uL (0.0-1.1) Eosinophils # (Auto) 0.2 x10^3/uL (0.0-0.7) Basophils # (Auto) 0.1 x10^3/uL (0.0-0.2) Sodium Level 139 mmol/L (136-145) Potassium Level 3.6 mmol/L (3.5-5.1) Chloride Level 102 mmol/L (98-107) Carbon Dioxide Level 27 mmol/L (21-32) Anion Gap 10 (6-14) Blood Urea Nitrogen 14 mg/dL (8-26) Creatinine 0.9 mg/dL (0.7-1.3) Estimated GFR (Cockcroft-Gault) 102.8 BUN/Creatinine Ratio 16 (6-20) Glucose Level 130 mg/dL (70-99) Calcium Level 9.0 mg/dL (8.5-10.1) Total Bilirubin 0.3 mg/dL (0.2-1.0) Aspartate Amino Transf (AST/SGOT) 49 U/L (15-37) Alanine Aminotransferase (ALT/SGPT) 39 U/L (16-63) Alkaline Phosphatase 80 U/L (46-116) OR-Yve-P-Type Natriuretic Peptide 266 pg/mL (0-124) Total Protein 7.6 g/dL (6.4-8.2) Albumin 3.7 g/dL (3.4-5.0) Albumin/Globulin Ratio 0.9 (1.0-1.7) Urine Collection Type Unknown Urine Color Yellow Urine Clarity Clear Urine pH 6.0 Urine Specific [place] >=1.030 Urine Protein Negative mg/dL (NEG-TRACE) Urine Glucose (UA) Negative mg/dL (NEG) Urine Ketones (Stick) Negative mg/dL (NEG) Urine Blood Negative (NEG) Urine Nitrite Negative (NEG) Urine Bilirubin Negative (NEG) Urine Urobilinogen Dipstick 0.2 mg/dL (0.2 mg/dL) Urine Leukocyte Esterase Negative (NEG) Urine RBC 0 /HPF (0-2) Urine WBC 0 /HPF (0-4) Urine Squamous Epithelial Cells Occ /LPF Urine Bacteria 0 /HPF (0-FEW) Urine Mucus Marked /LPF Urine Opiates Screen Neg (NEG) Urine Methadone Screen Neg (NEG) Urine Barbiturates Neg (NEG) Urine Phencyclidine Screen Neg (NEG) Urine Amphetamine/Methamphetamine Neg (NEG) Urine Benzodiazepines Screen Neg (NEG) Urine Cocaine Screen Neg (NEG) Urine Cannabinoids Screen Neg (NEG) Urine Ethyl Alcohol Neg (NEG) ECHOCARDIOGRAM ECHOCARDIOGRAM <Conclusion> The Left Ventricle is moderately dilated. Left ventricle ejection fraction is severely impaired. The Ejection Fraction is <20%. There is severe global hypokinesis There is no significant aortic valvular stenosis. Doppler and Color Flow revealed no significant aortic regurgitation. Doppler and Color Flow revealed mild to moderate mitral regurgitation. Doppler and Color Flow revealed mild tricuspid regurgitation. The PA pressure was estimated at 34 mmHg. DATE: 04/22/16 1546 JELANI <Conclusion> There is severe global hypokinesis of the left ventricle. The Ejection Fraction is estimated at 15-20%. Pacer/ICD wire noted in right atrium and right ventricle. Trace to mild mitral regurgitation. Mild tricuspid regurgitation. There is no evidence of significant pericardial effusion. DATE: 12/02/17 1246 ASSESSMENT/PLAN ASSESSMENT/PLAN 1. Altered mental status; remains somnolent. CT head negative. UDS negative. No fevers. 2. Chronic systolic heart failure; no crackles, no edema and no evidence of CHF on CXR. Clinically compensated. 3. NICM: s/p Medtronic AICD. LVEF 15-20% per JELANI 11/2017. 4. Hypertension; controlled Recommendations Resume optimization therapy including Entresto, Toprol, torsemide, and Sporonolactone. Losartan on home med list, but patient does not take- was discontinued when Entresto was initiated. No aggressive diuresis warranted. Check dig level; resume if WNL Supportive care. Further workup as per PCP. JORGE ADAMS MD 05/22/18 1441: CARDIAC CONSULT ASSESSMENT/PLAN ASSESSMENT/PLAN Patient seen and examined. 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 Continue current workup for mental status changes per IM Patient has known history of nonischemic cardiomyopathy with EF 15-20% Chronic systolic heart failure clinically well compensated Continue current medical regimen including entresto No further workup is indicated from cardiac standpoint Thank you for your consultation DUC SANDHU APRN May 22, 2018 08:23 JORGE ADAMS MD May 22, 2018 14:41
[2018-05-22 09:13] LABS: BASO % 0 % (0-3); EOS # 0.2 x10^3/uL (0.0-0.7); EOS % 2 % (0-3); HEMATOCRIT 37.1 % (39.0-53.0); HEMOGLOBIN 12.9 g/dL (13.0-17.5); LYMPH # 1.9 x10^3/uL (1.0-4.8); LYMPH % 23 % (24-48); MEAN CORPUSCULAR HEMOGLOBIN 29 pg (25-35); MEAN CORPUSCULAR HGB CONC 35 g/dL (31-37); MEAN CORPUSCULAR VOLUME 83 fL (79-100); MONO # 0.9 x10^3/uL (0.0-1.1); MONO % 11 % (0-9); NEUT # 5.3 x10^3uL (1.8-7.7); NEUT % 64 % (31-73); PLATELET COUNT 202 x10^3/uL (140-400); RED BLOOD COUNT 4.48 x10^6/uL (4.30-5.70); RED CELL DISTRIBUTION WIDTH 13.5 % (11.5-14.5); WHITE BLOOD COUNT 8.2 x10^3/uL (4.0-11.0)
[2018-05-22 09:26] LABS: CALCIUM 8.6 mg/dL (8.5-10.1); CREATININE 0.7 mg/dL (0.7-1.3); GFR 137.4; POTASSIUM 3.7 mmol/L (3.5-5.1)
[2018-05-22 11:00] VITALS: BP 140/68
[2018-05-22] MEDS ORDERED: ASPIRIN ENTERIC COATED 81 MG TABLET.DR. PO SCH (12:30)
[2018-05-22] MEDS ORDERED: SACUBITRIL/VALSARTAN 49/51MG TABLET. PO SCH (12:30)
[2018-05-22] MEDS ORDERED: TORSEMIDE 20 MG TABLET. PO SCH (12:30)
[2018-05-22] MEDS ORDERED: METOPROLOL SUCC 24HR ER 100 MG TAB.ER.24H. PO SCH (12:30)
[2018-05-22] MEDS ORDERED: SPIRONOLACTONE 25 MG TABLET PO SCH (12:30)
[2018-05-22 12:36] LABS: DIG < 0.2 ng/mL (0.9-2.0)
[2018-05-22] MEDS ORDERED: DIGOXIN 125 MCG TABLET. PO SCH (13:00)
--- NOTE | 2018-05-22 13:09 | SSS ---
ADMIT DATE: 05/22/2018 CHIEF COMPLAINT: Shortness of breath, mental status change. HISTORY OF PRESENT ILLNESS: The patient is a pleasant 27-year-old male who has a 13% ejection fraction. He went to the yesterday. His states when they got home, he laid down the couch and he did not really wake up. She called EMS. He was brought to the Emergency Room, now been admitted overnight for observation. This morning, he seems to be doing well. I am going to go ahead and consult Cardiology and diurese him a little bit. He does have associated anxiety. States he is on the transplant list at [facility]. Has been taking his meds as prescribed other than yesterday. PAST MEDICAL HISTORY: CHF, probable a viral etiology; dilated cardiomyopathy; hypertension; pacemaker; diabetes; hypertension. ALLERGIES: LISINOPRIL. FAMILY HISTORY: Coronary artery disease. SOCIAL HISTORY: Does not drink, smoke or take drugs. He is . MEDICATIONS: Reviewed, please refer to the MRAD. He is on digoxin, metoprolol, Cozaar, Entresto, Aldactone, aspirin, Lexapro and torsemide. REVIEW OF SYSTEMS: GENERAL: No history of weight change, weakness or fevers. SKIN: No bruising, hair changes or rashes. EYES: No blurred, double or loss of vision. NOSE AND THROAT: No history of nosebleeds, hoarseness or sore throat. HEART: No history of palpitations, chest pain or shortness of breath on exertion. LUNGS: Denies cough, hemoptysis, wheezing or shortness of breath. GASTROINTESTINAL: Denies changes in appetite, nausea, vomiting, diarrhea or constipation. GENITOURINARY: No history of frequency, urgency, hesitancy or nocturia. NEUROLOGIC: Denies history of numbness, tingling, tremor or weakness. PSYCHIATRIC: No history of panic, anxiety or depression. ENDOCRINE: No history of heat or cold intolerance, polyuria or polydipsia. EXTREMITIES: Denies muscle weakness, joint pain, pain on walking or stiffness. PHYSICAL EXAMINATION: VITAL SIGNS: Temperature is afebrile, pulse 80, respirations 18, blood pressure 131/71, O2 sat 94% on room air. GENERAL: He is sleeping. He awakens. His is present. She is a good support for him. HEART: Normal S1, S2 with a soft S3. LUNGS: Clear. ABDOMEN: Soft. EXTREMITIES: Trace edema. SKIN: No rashes. ENDOCRINE: No thyromegaly. LYMPHATICS: No cervical nodes. HEMATOPOIETIC: No bruising. PSYCHIATRIC: He is a little depressed. LABORATORY DATA: Hematology is normal. Electrolytes are normal. BNP 266. Drug screen negative. Urinalysis negative. Chest x-ray shows no radiographic evidence of an acute process. CT of the head was negative. ASSESSMENT AND PLAN: Mental status change and acute on chronic systolic and diastolic heart failure. Clinically, the patient seems to be doing well. We are going to go ahead and diurese him a little and consult Cardiology, serial enzymes, serial EKGs, cardiac monitoring, home meds, though suspect to be able to discharge today or tomorrow. DISPOSITION: Home. ACTIVITY: As tolerated. DIET: Low sodium. MEDICATIONS: Please see the MRAD. TOTAL TIME: 31 minutes. DAYANNA BULLOCK DO DR: WILLIAMS/grady JOB#: [id number] / [id number]
[2018-05-22 15:00] VITALS: BP 120/60
--- NOTE | 2018-05-22 16:41 | NUR ---
Patient discharged to home. Discharge instructions, medications, and follow up appointments discussed with patient and . Both verbalized understanding. IV discontinued. Discharge paperwork given to patient. Patient assisted out in wheelchair by staff at this time. Family here with patient.
== END 2018-05-22 16:43 | disposition home or self-care (01) | DRG 293 ==
LOC: ER 20:52 → 5 NORTH 05-22 02:12
PROVIDERS: ADMIT Internal Medicine; ATTEND Internal Medicine
DX: I11.0 Hypertensive heart disease with heart failure (principal); F41.9 Anxiety disorder, unspecified; I42.0 Dilated cardiomyopathy; E11.9 Type 2 diabetes mellitus without complications; I50.43 Acute on chronic combined systolic (congestive) and diastolic (congestive) heart failure; Z76.82 Awaiting organ transplant status; Z95.0 Presence of cardiac pacemaker; Z88.8 Allergy status to other drugs, medicaments and biological substances; Z82.49 Family history of ischemic heart disease and other diseases of the circulatory system; Z83.3 Family history of diabetes mellitus
CPT/HCPCS: 36415; 70450; 71045; 80048; 80053; 80162; 80307; 81001; 83880; 85025; 93005; J7030; J7040

== ENCOUNTER 2018-11-06 07:45 | Inpatient (IN) | payer OTHER ==
[2018-11-06] VITALS (9 sets, daily range): BP systolic 108–158; BP diastolic 61–117
[~2018-11-06] VITALS: Ht 177.8 cm; Wt 113.4 kg
[~2018-11-06 07:45] MED LIST changes: +LEXAPRO20 MG PO; +SACU1TAB4 PO; +SPIR25TA PO; +TORS20TA2 PO
[2018-11-06] MEDS ORDERED: ASPIRIN 325 MG TABLET PO ONE (08:00)
[2018-11-06 08:21] LABS: BASO # 0.1 x10^3/uL (0.0-0.2); BASO % 1 % (0-3); EOS # 0.1 x10^3/uL (0.0-0.7); EOS % 1 % (0-3); HEMATOCRIT 41.3 % (39.0-53.0); LYMPH # 2.1 x10^3/uL (1.0-4.8); LYMPH % 20 % (24-48); MEAN CORPUSCULAR HEMOGLOBIN 28 pg (25-35); MEAN CORPUSCULAR HGB CONC 34 g/dL (31-37); MEAN CORPUSCULAR VOLUME 82 fL (79-100); MONO # 0.7 x10^3/uL (0.0-1.1); MONO % 7 % (0-9); NEUT # 7.3 x10^3uL (1.8-7.7); NEUT % 71 % (31-73); PLATELET COUNT 256 x10^3/uL (140-400); RED BLOOD COUNT 5.04 x10^6/uL (4.30-5.70); RED CELL DISTRIBUTION WIDTH 13.4 % (11.5-14.5); WHITE BLOOD COUNT 10.3 x10^3/uL (4.0-11.0)
[2018-11-06 08:34] LABS: PROTHROMBIN TIME PATIENT 13.1 SEC (11.7-14.0)
[2018-11-06 08:37] LABS: ANION GAP 12 (6-14); BLOOD UREA NITROGEN 11 mg/dL (8-26); BUN/CREATININE RATIO 16 (6-20); CALCIUM 8.4 mg/dL (8.5-10.1); CARBON DIOXIDE 23 mmol/L (21-32); CHLORIDE 104 mmol/L (98-107); CREATININE 0.7 mg/dL (0.7-1.3); GFR 137.4; GLUCOSE 111 mg/dL (70-99); POTASSIUM 3.6 mmol/L (3.5-5.1); SODIUM 139 mmol/L (136-145)
[2018-11-06 08:41] LABS: ALBUMIN 3.8 g/dL (3.4-5.0); ALBUMIN/GLOBULIN RATIO 1.1 (1.0-1.7); ALK PHOS 81 U/L (46-116); ALT (SGPT) 72 U/L (16-63); AST (SGOT) 34 U/L (15-37); CREATINE KINASE 90 U/L (39-308); TOTAL BILIRUBIN 0.5 mg/dL (0.2-1.0); TOTAL PROTEIN 7.3 g/dL (6.4-8.2)
[2018-11-06 08:44] LABS: DIG < 0.2 ng/mL (0.9-2.0)
--- NOTE | 2018-11-06 08:48 | RAD ---
PORTABLE CHEST 1V History: Chest pain since last night, CHF, hypertension Comparison: May 21, 2018 Findings: Single view of the chest is submitted. Pericardial cardiac silhouette is again enlarged. There is again single lead left electronic cardiac device. No pneumothorax or pleural fluid. There is no new lobar consolidation. Mild prominence of the central pulmonary vasculature is similar. Impression: 1. There is again enlargement of the pericardial cardiac silhouette. There is prominence of the central pulmonary vasculature although fairly similar radiographically. Electronically signed by: Miguel Etienne MD (11/06/2018 8:44 AM) [id number]
--- NOTE | 2018-11-06 09:05 | PHYS DOC ---
Past Medical History Past Medical History: CHF, Hypertension Additional Past Medical Histor: endocarditis Past Surgical History: Other Additional Past Surgical Histo: DEFIB PLACEMENT Alcohol Use: None Drug Use: None Adult General Chief Complaint Chief Complaint: SHORTNESS OF BREATH HPI HPI Patient is a 27 year old male presented ER today for evaluation of chest pain and trouble breathing since yesterday. Patient has history of CHF, has history of AICD placed due to cardiomyopathy. He denies any fever, no recent travel or operation. Patient had been coughing with clear sputum. Review of Systems Review of Systems Constitutional: Denies fever or chills [] Eyes: Denies change in visual acuity, redness, or eye pain [] HENT: Denies nasal congestion or sore throat [] Respiratory: POSITIVE FOR cough or shortness of breath [] Cardiovascular: No additional information not addressed in HPI [] GI: Denies abdominal pain, nausea, vomiting, bloody stools or diarrhea [] : Denies dysuria or hematuria [] Musculoskeletal: Denies back pain or joint pain [] Integument: Denies rash or skin lesions [] Neurologic: Denies headache, focal weakness or sensory changes [] Endocrine: Denies polyuria or polydipsia [] All other systems were reviewed and found to be within normal limits, except as documented in this note. Current Medications Current Medications Current Medications Medications (Trade) Dose Ordered Sig/Heather Start Time Stop Time Status Last Admin Dose Admin Aspirin ([place] Aspirin) 325 mg 1X ONCE 11/06/18 08:00 11/06/18 08:01 DC 11/06/18 08:15 325 MG Allergies Allergies Allergies Coded Allergies Type Severity Reaction Last Updated Verified lisinopril Adverse Reaction Intermediate COUGH 12/02/17 Yes Physical Exam Physical Exam Constitutional: Well developed, well nourished, no acute distress, non-toxic appearance. [] HENT: Normocephalic, atraumatic, bilateral external ears normal, oropharynx moist, no oral exudates, nose normal. [] Eyes: PERRLA, EOMI, conjunctiva normal, no discharge. [] Neck: Normal range of motion, no tenderness, supple, no stridor. [] Cardiovascular:Heart rate regular rhythm, no murmur [] Lungs & Thorax: Bilateral breath sounds clear to auscultation [] Abdomen: Bowel sounds normal, soft, no tenderness, no masses, no pulsatile masses. [] Skin: Warm, dry, no erythema, no rash. [] Back: No tenderness, no CVA tenderness. [] Extremities: No tenderness, no cyanosis, no clubbing, ROM intact, no edema. [] Neurologic: Alert and oriented X 3, normal motor function, normal sensory function, no focal deficits noted. [] Psychologic: Affect normal, judgement normal, mood normal. [] Current Patient Data Vital Signs Vital Signs Date Time Temp Pulse Resp B/P (MAP) Pulse Ox O2 Delivery O2 Flow Rate FiO2 11/06/18 07:52 98.9 112 20 153/99 (117) 94 Room Air 98.9 Lab Values Laboratory Tests Test 11/06/18 08:10 White Blood Count 10.3 x10^3/uL (4.0-11.0) Red Blood Count 5.04 x10^6/uL (4.30-5.70) Hemoglobin 14.0 g/dL (13.0-17.5) Hematocrit 41.3 % (39.0-53.0) Mean Corpuscular Volume 82 fL (79-100) Mean Corpuscular Hemoglobin 28 pg (25-35) Mean Corpuscular Hemoglobin Concent 34 g/dL (31-37) Red Cell Distribution Width 13.4 % (11.5-14.5) Platelet Count 256 x10^3/uL (140-400) Neutrophils (%) (Auto) 71 % (31-73) Lymphocytes (%) (Auto) 20 % (24-48) L Monocytes (%) (Auto) 7 % (0-9) Eosinophils (%) (Auto) 1 % (0-3) Basophils (%) (Auto) 1 % (0-3) Neutrophils # (Auto) 7.3 x10^3uL (1.8-7.7) Lymphocytes # (Auto) 2.1 x10^3/uL (1.0-4.8) Monocytes # (Auto) 0.7 x10^3/uL (0.0-1.1) Eosinophils # (Auto) 0.1 x10^3/uL (0.0-0.7) Basophils # (Auto) 0.1 x10^3/uL (0.0-0.2) Prothrombin Time 13.1 SEC (11.7-14.0) Prothrombin Time INR 1.0 (0.8-1.1) PTT 35 SEC (24-38) Sodium Level 139 mmol/L (136-145) Potassium Level 3.6 mmol/L (3.5-5.1) Chloride Level 104 mmol/L (98-107) Carbon Dioxide Level 23 mmol/L (21-32) Anion Gap 12 (6-14) Blood Urea Nitrogen 11 mg/dL (8-26) Creatinine 0.7 mg/dL (0.7-1.3) Estimated GFR (Cockcroft-Gault) 137.4 BUN/Creatinine Ratio 16 (6-20) Glucose Level 111 mg/dL (70-99) H Calcium Level 8.4 mg/dL (8.5-10.1) L Magnesium Level 2.0 mg/dL (1.8-2.4) Total Bilirubin 0.5 mg/dL (0.2-1.0) Aspartate Amino Transferase (AST) 34 U/L (15-37) Alanine Aminotransferase (ALT) 72 U/L (16-63) H Alkaline Phosphatase 81 U/L (46-116) Creatine Kinase 117 U/L (39-308) Creatine Kinase MB (Mass) 1.3 ng/mL (0.0-3.6) Creatine Kinase MB Relative Index 1.1 % (0-4) Troponin I Quantitative 0.049 ng/mL (0.000-0.055) FT-Dqh-X-Type Natriuretic Peptide 1016 pg/mL (0-124) H Total Protein 7.3 g/dL (6.4-8.2) Albumin 3.8 g/dL (3.4-5.0) Albumin/Globulin Ratio 1.1 (1.0-1.7) Digoxin Level < 0.2 ng/mL (0.9-2.0) L Digoxin Last Dose Date Unknown Digoxin Last Dose Time Unknown Laboratory Tests 11/06/18 08:10 Laboratory Tests 11/06/18 08:10 EKG EKG EKG RATE OF 105 BPM, SINUS TACHYCARDIA, NO STEMI[] Radiology/Procedures Radiology/Procedures [][facility] [address] [place] [address] IMAGING REPORT Signed PATIENT: HERIBERTO STEEN ACCOUNT: [id number] : 1990 LOCATION: ER AGE: 27 SEX: M EXAM STATUS: REG ER ORD. PHYSICIAN: DAI CHAND DO REASON: CHEST PAIN since last pm. hx chf, htn PROCEDURE: PORTABLE CHEST 1V PORTABLE CHEST 1V History: Chest pain since last night, CHF, hypertension Comparison: May 21, 2018 Findings: Single view of the chest is submitted. Pericardial cardiac silhouette is again enlarged. There is again single lead left electronic cardiac device. No pneumothorax or pleural fluid. There is no new lobar consolidation. Mild prominence of the central pulmonary vasculature is similar. Impression: 1. There is again enlargement of the pericardial cardiac silhouette. There is prominence of the central pulmonary vasculature although fairly similar radiographically. Electronically signed by: Austen Zuniga MD (11/06/2018 8:44 AM) [id number] DICTATED and SIGNED BY: AUSTEN ZUNIGA MD DATE: 11/06/18 0844 Course & Med Decision Making Course & Med Decision Making Pertinent Labs and Imaging studies reviewed. (See chart for details) [] Dragon Disclaimer Dragon Disclaimer This electronic medical record was generated, in whole or in part, using a voice recognition dictation system. Departure Departure Impression: Primary Impression: CHF exacerbation Additional Impression: Chest pain Disposition: ADMITTED INPATIENT Condition: STABLE Referrals: CRYSTAL CHIU MD (PCP) Problem Qualifiers DAI CHAND DO Nov 06, 2018 09:05
--- NOTE | 2018-11-06 09:10 | PDOC1 ---
History and Physical Date of Admission Date of Admission DATE: 11/06/18 TIME: 09:10 Identification/Chief Complaint Chief Complaint SEEN IN ER presented ER today for evaluation of chest pain and trouble breathing since 11/05 . Patient has history of CHF, has history of AICD placed due to cardiomyopathy. He denies any fever, no recent travel or operation. Patient had been coughing /SOA Past Medical History Cardiovascular: CHF, HTN Pulmonary: No pertinent hx CENTRAL NERVOUS SYSTEM: Other GI: No pertinent hx Heme/Onc: No pertinent hx Hepatobiliary: No pertinent hx Psych: No pertinent hx Musculoskeletal: Weakness, Other Rheumatologic: No pertinent hx Infectious disease: No pertinent hx Renal/: No pertinent hx Endocrine: No pertinent hx Dermatology: No pertinent hx Past Surgical History Past Surgical History: Pacemaker Family History Family History: Diabetes, Heart Disease, Hypertension Social History Smoke: No ALCOHOL: none Drugs: None Current Medications Current Medications Current Medications Aspirin ([place] Aspirin) 325 mg 1X ONCE PO Last administered on 11/06/18at 08: 15; Start 11/06/18 at 08:00; Stop 11/06/18 at 08:01; Status DC Active Scripts Active Aspirin Ec (Aspirin) 81 Mg Tablet. 81 Mg PO [id number] Reported Lexapro (Escitalopram Oxalate) 20 Mg Tablet 20 Mg PO DAILY Entresto 97 mg-103 mg Tablet (Sacubitril/Valsartan) 1 Each Tablet 1 Each PO BID Torsemide 20 Mg Tablet 10 Mg PO DAILY Aldactone (Spironolactone) 25 Mg Tablet 12.5 Mg PO DAILY Digoxin 125 Mcg Tablet 1 Tab PO DAILY Metoprolol Succinate ( Xl ) (Metoprolol Succinate) 100 Mg Tab.er.24h 1 Tab PO DAILY Allergies Allergies: Coded Allergies: lisinopril (Verified Adverse Reaction, Intermediate, COUGH, 12/02/17) ROS Review of System Review of Systems Review of Systems Constitutional: Denies fever or chills [] Eyes: Denies change in visual acuity, redness, or eye pain [] HENT: Denies nasal congestion or sore throat [] Respiratory: POSITIVE FOR cough or shortness of breath [] Cardiovascular: No additional information not addressed in HPI [] GI: Denies abdominal pain, nausea, vomiting, bloody stools or diarrhea [] : Denies dysuria or hematuria [] Musculoskeletal: Denies back pain or joint pain [] Integument: Denies rash or skin lesions [] Neurologic: Denies headache, focal weakness or sensory changes [] Endocrine: Denies polyuria or polydipsia [] 14 PT systems were reviewed and found to be within normal limits, except as documented General: YES: Fatigue, Malaise HEENT: No: Heacaches, Visual Changes, Hearing change, Nasal congestion, Nasal discharge, Oral lesions, Sinus pain, Sore Throat, Epistaxis, Sneezing, Snoring, Tinnitus, Vertigo, Vocal changes, Other Respiratory: YES: Cough, Shortness of breath Cardiovascular: yes Chest Pain Gastrointestinal: No Nausea, No Vomiting, No Abdominal Pain, No Diarrhea, No Constipation, No Melena, No Hematochezia, No Other Physical Exam Physical Exam Physical Exam Physical Exam Constitutional: Well developed, well nourished, MILD acute distress, non-toxic appearance. [] HENT: Normocephalic, atraumatic, bilateral external ears normal, oropharynx moist, no oral exudates, nose normal. [] Eyes: PERRLA, EOMI, conjunctiva normal, no discharge. [] Neck: Normal range of motion, no tenderness, supple, no stridor. [] Cardiovascular:Heart rate regular rhythm, no murmur [] Lungs & Thorax: Bilateral breath sounds clear to auscultation [] Abdomen: Bowel sounds normal, soft, no tenderness, no masses, no pulsatile masses. [] Skin: Warm, dry, no erythema, no rash. [] Back: No tenderness, no CVA tenderness. [] Extremities: No tenderness, no cyanosis, no clubbing, ROM intact, no edema. [] Neurologic: Alert and oriented X 3, normal motor function, normal sensory function, no focal deficits noted. [] Psychologic: Affect normal, judgement normal, mood normal. [] General: Alert, Oriented X3, Cooperative, mild distress HEENT: Atraumatic, EOMI, Mucous membr. moist/pink Lungs: Clear to auscultation Heart: no thrills Breasts: Not examined Abdomen: Normal bowel sounds, Soft Rectal Exam: not examined PELVIC: Examination not indicated Neuro: Normal speech, Strength at 5/5 X4 ext, Cranial nerves 3-12 NL Psych/Mental Status: Mental status NL, Mood NL Vitals Vitals Vital Signs Date Time Temp Pulse Resp B/P (MAP) Pulse Ox O2 Delivery O2 Flow Rate FiO2 11/06/18 07:52 98.9 112 20 153/99 (117) 94 Room Air 98.9 Labs Labs Laboratory Tests Test 11/06/18 08:10 White Blood Count 10.3 x10^3/uL (4.0-11.0) Red Blood Count 5.04 x10^6/uL (4.30-5.70) Hemoglobin 14.0 g/dL (13.0-17.5) Hematocrit 41.3 % (39.0-53.0) Mean Corpuscular Volume 82 fL (79-100) Mean Corpuscular Hemoglobin 28 pg (25-35) Mean Corpuscular Hemoglobin Concent 34 g/dL (31-37) Red Cell Distribution Width 13.4 % (11.5-14.5) Platelet Count 256 x10^3/uL (140-400) Neutrophils (%) (Auto) 71 % (31-73) Lymphocytes (%) (Auto) 20 % (24-48) Monocytes (%) (Auto) 7 % (0-9) Eosinophils (%) (Auto) 1 % (0-3) Basophils (%) (Auto) 1 % (0-3) Neutrophils # (Auto) 7.3 x10^3uL (1.8-7.7) Lymphocytes # (Auto) 2.1 x10^3/uL (1.0-4.8) Monocytes # (Auto) 0.7 x10^3/uL (0.0-1.1) Eosinophils # (Auto) 0.1 x10^3/uL (0.0-0.7) Basophils # (Auto) 0.1 x10^3/uL (0.0-0.2) Prothrombin Time 13.1 SEC (11.7-14.0) Prothromb Time International Ratio 1.0 (0.8-1.1) Activated Partial Thromboplast Time 35 SEC (24-38) Sodium Level 139 mmol/L (136-145) Potassium Level 3.6 mmol/L (3.5-5.1) Chloride Level 104 mmol/L (98-107) Carbon Dioxide Level 23 mmol/L (21-32) Anion Gap 12 (6-14) Blood Urea Nitrogen 11 mg/dL (8-26) Creatinine 0.7 mg/dL (0.7-1.3) Estimated GFR (Cockcroft-Gault) 137.4 BUN/Creatinine Ratio 16 (6-20) Glucose Level 111 mg/dL (70-99) Calcium Level 8.4 mg/dL (8.5-10.1) Magnesium Level 2.0 mg/dL (1.8-2.4) Total Bilirubin 0.5 mg/dL (0.2-1.0) Aspartate Amino Transf (AST/SGOT) 34 U/L (15-37) Alanine Aminotransferase (ALT/SGPT) 72 U/L (16-63) Alkaline Phosphatase 81 U/L (46-116) Creatine Kinase 117 U/L (39-308) Creatine Kinase MB (Mass) 1.3 ng/mL (0.0-3.6) Creatine Kinase MB Relative Index 1.1 % (0-4) Troponin I Quantitative 0.049 ng/mL (0.000-0.055) SF-Etw-J-Type Natriuretic Peptide 1016 pg/mL (0-124) Total Protein 7.3 g/dL (6.4-8.2) Albumin 3.8 g/dL (3.4-5.0) Albumin/Globulin Ratio 1.1 (1.0-1.7) Digoxin Level < 0.2 ng/mL (0.9-2.0) Digoxin Last Dose Date Unknown Digoxin Last Dose Time Unknown Laboratory Tests Test 11/06/18 08:10 White Blood Count 10.3 x10^3/uL (4.0-11.0) Red Blood Count 5.04 x10^6/uL (4.30-5.70) Hemoglobin 14.0 g/dL (13.0-17.5) Hematocrit 41.3 % (39.0-53.0) Mean Corpuscular Volume 82 fL (79-100) Mean Corpuscular Hemoglobin 28 pg (25-35) Mean Corpuscular Hemoglobin Concent 34 g/dL (31-37) Red Cell Distribution Width 13.4 % (11.5-14.5) Platelet Count 256 x10^3/uL (140-400) Neutrophils (%) (Auto) 71 % (31-73) Lymphocytes (%) (Auto) 20 % (24-48) Monocytes (%) (Auto) 7 % (0-9) Eosinophils (%) (Auto) 1 % (0-3) Basophils (%) (Auto) 1 % (0-3) Neutrophils # (Auto) 7.3 x10^3uL (1.8-7.7) Lymphocytes # (Auto) 2.1 x10^3/uL (1.0-4.8) Monocytes # (Auto) 0.7 x10^3/uL (0.0-1.1) Eosinophils # (Auto) 0.1 x10^3/uL (0.0-0.7) Basophils # (Auto) 0.1 x10^3/uL (0.0-0.2) Prothrombin Time 13.1 SEC (11.7-14.0) Prothromb Time International Ratio 1.0 (0.8-1.1) Activated Partial Thromboplast Time 35 SEC (24-38) Sodium Level 139 mmol/L (136-145) Potassium Level 3.6 mmol/L (3.5-5.1) Chloride Level 104 mmol/L (98-107) Carbon Dioxide Level 23 mmol/L (21-32) Anion Gap 12 (6-14) Blood Urea Nitrogen 11 mg/dL (8-26) Creatinine 0.7 mg/dL (0.7-1.3) Estimated GFR (Cockcroft-Gault) 137.4 BUN/Creatinine Ratio 16 (6-20) Glucose Level 111 mg/dL (70-99) Calcium Level 8.4 mg/dL (8.5-10.1) Magnesium Level 2.0 mg/dL (1.8-2.4) Total Bilirubin 0.5 mg/dL (0.2-1.0) Aspartate Amino Transf (AST/SGOT) 34 U/L (15-37) Alanine Aminotransferase (ALT/SGPT) 72 U/L (16-63) Alkaline Phosphatase 81 U/L (46-116) Creatine Kinase 117 U/L (39-308) Creatine Kinase MB (Mass) 1.3 ng/mL (0.0-3.6) Creatine Kinase MB Relative Index 1.1 % (0-4) Troponin I Quantitative 0.049 ng/mL (0.000-0.055) AI-Hch-E-Type Natriuretic Peptide 1016 pg/mL (0-124) Total Protein 7.3 g/dL (6.4-8.2) Albumin 3.8 g/dL (3.4-5.0) Albumin/Globulin Ratio 1.1 (1.0-1.7) Digoxin Level < 0.2 ng/mL (0.9-2.0) Digoxin Last Dose Date Unknown Digoxin Last Dose Time Unknown Images Images <Conclusion> The Left Ventricle is moderately dilated. 2016 Left ventricle ejection fraction is severely impaired. The Ejection Fraction is <20%. There is severe global hypokinesis There is no significant aortic valvular stenosis. Doppler and Color Flow revealed no significant aortic regurgitation. Doppler and Color Flow revealed mild to moderate mitral regurgitation. Doppler and Color Flow revealed mild tricuspid regurgitation. The PA pressure was estimated at 34 mmHg. DICTATED and SIGNED BY: JOSE ANGEL ALSTON MD DATE: 04/22/16 1546 PORTABLE CHEST 1V History: Chest pain since last night, CHF, hypertension Comparison: May 21, 2018 Findings: Single view of the chest is submitted. Pericardial cardiac silhouette is again enlarged. There is again single lead left electronic cardiac device. No pneumothorax or pleural fluid. There is no new lobar consolidation. Mild prominence of the central pulmonary vasculature is similar. Impression: 1. There is again enlargement of the pericardial cardiac silhouette. There is prominence of the central pulmonary vasculature although fairly similar radiographically. Electronically signed by: Miguel Etienne MD (11/06/2018 8:44 AM) [id number] VTE Prophylaxis Ordered VTE Prophylaxis Devices: No VTE Pharmacological Prophylaxi: Yes Assessment/Plan Assessment/Plan 1. acute systolic CHF exacerbation EF 20% <Conclusion> echo 2016 The Left Ventricle is moderately dilated. Left ventricle ejection fraction is severely impaired. The Ejection Fraction is <20%. There is severe global hypokinesis There is no significant aortic valvular stenosis. Doppler and Color Flow revealed no significant aortic regurgitation. Doppler and Color Flow revealed mild to moderate mitral regurgitation. Doppler and Color Flow revealed mild tricuspid regurgitation. The PA pressure was estimated at 34 mmHg. enlargement of the pericardial cardiac silhouette. There is prominence of the central pulmonary vasculature although fairly similar radiographically. 2. post ICD 3. NON Ischimic cardiomyopathy 4. HTN 5. H/O ENdocarditis 6. morbid obesity 7. chest pain 8. acute hypoxic resp failure plan icu bed cardiology consult serial troponin i home meds //Entresto, Toprol, torsemide, and Spironolactone. o2 support screen for sleep apnea lasix 40 mg iv x 1 cc time 39 min BRIANNA FISHER MD Nov 06, 2018 09:10
[2018-11-06] MEDS: TORSEMIDE 20 MG TABLET. PO SCH (10:00)
--- NOTE | 2018-11-06 10:43 | PDOC2 ---
CARDIAC CONSULT DATE OF CONSULT Date of Consult DATE: 11/06/18 TIME: 10:34 REASON FOR CONSULT Reason for Consult: Chest pain, CHF REFERRING PHYSICIAN Referring Physician: Dr. Marie SOURCE Source: Chart review, Patient HISTORY OF PRESENT ILLNESS HISTORY OF PRESENT ILLNESS This is a 27 yo male, with a history of NICM s/p AICD, who presented secondary to shortness of breath and chest pain. Patient reports he had difficulty sleeping last night. Every time he laid down he would begin coughing. Had sharp pain in his right chest and was slightly short of breath. No dizziness, diaphoresis, palpitations, or nausea/vomiting. No recent LE edema, fevers/illness. No changes in diet. Reports compliance with medications. Has not been compliant with followup in the office for heart failure management or device checks. PAST MEDICAL HISTORY Past Medical History Cardiovascular: CHF (NICM ), HTN Pulmonary: No pertinent hx CENTRAL NERVOUS SYSTEM: Other (no pertinent hx) GI: No pertinent hx Heme/Onc: No pertinent hx Hepatobiliary: No pertinent hx Psych: No pertinent hx Musculoskeletal: Other (no pertinent hx) Rheumatologic: No pertinent hx Infectious disease: No pertinent hx ENT: No pertinent hx Renal/: No pertinent hx Endocrine: No pertinent hx Dermatology: No pertinent hx PAST SURGICAL HISTORY Past Surgical History Pacemaker (AICD (Medtronic)) FAMILY HISTORY Family History: Diabetes, Heart Disease, Hypertension SOCIAL HISTORY Social History Smoke: No ALCOHOL: none Drugs: None Lives: with Family CURRENT MEDICATIONS CURRENT MEDICATIONS Current Medications Medications (Trade) Dose Ordered Sig/Heather Route PRN Reason Start Time Stop Time Status Last Admin Dose Admin Aspirin ([place] Aspirin) 325 mg 1X ONCE PO 11/06/18 08:00 11/06/18 08:01 DC 11/06/18 08:15 ALLERGIES ALLERGIES: Coded Allergies: No Known Medication Allergies (Verified Allergy, Unknown, 11/06/18) lisinopril (Verified Adverse Reaction, Intermediate, COUGH, 12/02/17) ROS Review of System 14 point ROS conducted with pertinent positives noted above in HPI. PHYSICAL EXAM PHYSICAL EXAM General: No acute distress, Other HEENT: Atraumatic, Mucous membr. moist/pink Lungs: fine bibasilar crackles Heart: Regular rate, Normal S1, Normal S2, Other (2/6 systolic murmur ) Abdomen: Soft, No tenderness Extremities: No edema, Normal pulses Skin: No significant lesion Neuro: Normal speech, Sensation intact Psych/Mental Status: Mood NL, MUSCULOSKELETAL: No swelling VITALS VITALS Vital Signs Date Time Temp Pulse Resp B/P (MAP) Pulse Ox O2 Delivery O2 Flow Rate FiO2 11/06/18 09:44 100 18 143/86 (105) 96 Nasal Cannula 2.0 11/06/18 07:52 98.9 98.9 LABS Lab: Laboratory Tests Test 11/06/18 08:10 White Blood Count 10.3 x10^3/uL (4.0-11.0) Red Blood Count 5.04 x10^6/uL (4.30-5.70) Hemoglobin 14.0 g/dL (13.0-17.5) Hematocrit 41.3 % (39.0-53.0) Mean Corpuscular Volume 82 fL (79-100) Mean Corpuscular Hemoglobin 28 pg (25-35) Mean Corpuscular Hemoglobin Concent 34 g/dL (31-37) Red Cell Distribution Width 13.4 % (11.5-14.5) Platelet Count 256 x10^3/uL (140-400) Neutrophils (%) (Auto) 71 % (31-73) Lymphocytes (%) (Auto) 20 % (24-48) Monocytes (%) (Auto) 7 % (0-9) Eosinophils (%) (Auto) 1 % (0-3) Basophils (%) (Auto) 1 % (0-3) Neutrophils # (Auto) 7.3 x10^3uL (1.8-7.7) Lymphocytes # (Auto) 2.1 x10^3/uL (1.0-4.8) Monocytes # (Auto) 0.7 x10^3/uL (0.0-1.1) Eosinophils # (Auto) 0.1 x10^3/uL (0.0-0.7) Basophils # (Auto) 0.1 x10^3/uL (0.0-0.2) Prothrombin Time 13.1 SEC (11.7-14.0) Prothromb Time International Ratio 1.0 (0.8-1.1) Activated Partial Thromboplast Time 35 SEC (24-38) Sodium Level 139 mmol/L (136-145) Potassium Level 3.6 mmol/L (3.5-5.1) Chloride Level 104 mmol/L (98-107) Carbon Dioxide Level 23 mmol/L (21-32) Anion Gap 12 (6-14) Blood Urea Nitrogen 11 mg/dL (8-26) Creatinine 0.7 mg/dL (0.7-1.3) Estimated GFR (Cockcroft-Gault) 137.4 BUN/Creatinine Ratio 16 (6-20) Glucose Level 111 mg/dL (70-99) Calcium Level 8.4 mg/dL (8.5-10.1) Magnesium Level 2.0 mg/dL (1.8-2.4) Total Bilirubin 0.5 mg/dL (0.2-1.0) Aspartate Amino Transf (AST/SGOT) 34 U/L (15-37) Alanine Aminotransferase (ALT/SGPT) 72 U/L (16-63) Alkaline Phosphatase 81 U/L (46-116) Creatine Kinase 117 U/L (39-308) Creatine Kinase MB (Mass) 1.3 ng/mL (0.0-3.6) Creatine Kinase MB Relative Index 1.1 % (0-4) Troponin I Quantitative 0.049 ng/mL (0.000-0.055) EF-Vpa-I-Type Natriuretic Peptide 1016 pg/mL (0-124) Total Protein 7.3 g/dL (6.4-8.2) Albumin 3.8 g/dL (3.4-5.0) Albumin/Globulin Ratio 1.1 (1.0-1.7) Digoxin Level < 0.2 ng/mL (0.9-2.0) Digoxin Last Dose Date Unknown Digoxin Last Dose Time Unknown ECHOCARDIOGRAM ECHOCARDIOGRAM <Conclusion> The Left Ventricle is moderately dilated. Left ventricle ejection fraction is severely impaired. The Ejection Fraction is <20%. There is severe global hypokinesis There is no significant aortic valvular stenosis. Doppler and Color Flow revealed no significant aortic regurgitation. Doppler and Color Flow revealed mild to moderate mitral regurgitation. Doppler and Color Flow revealed mild tricuspid regurgitation. The PA pressure was estimated at 34 mmHg. DATE: 04/22/16 1546 JELANI <Conclusion> There is severe global hypokinesis of the left ventricle. The Ejection Fraction is estimated at 15-20%. Pacer/ICD wire noted in right atrium and right ventricle. Trace to mild mitral regurgitation. Mild tricuspid regurgitation. There is no evidence of significant pericardial effusion. DATE: 12/02/17 1246 ASSESSMENT/PLAN ASSESSMENT/PLAN 1. Mild acute on chronic systolic heart failure 2. NICM: s/p Medtronic AICD. LVEF 15-20% per JELANI 11/2017. 3. Chest pain, atypical. Trop 0.049 3. Hypertension; mildly elevated Recommendations Resume optimization therapy including Entresto, Dig, Toprol, torsemide, and Sporonolactone Device check. Will give additional lasix today Encourage compliance with office f/u DUC SANDHU APRN Nov 06, 2018 10:43
--- NOTE | 2018-11-06 11:11 | NUR ---
ADMISSION NOTE: Pt admitted to RM 111, CVC status. Pt A&Ox4, ST on the monitor. On 2LNC for support. No chest pain noted. Pt able to answer all admission questions. ZAC George aware of cardiology consult. Orders placed.
[2018-11-06] MEDS ORDERED: POTASSIUM CHLORIDE 20 MEQ TABLET.ER. PO ONE (11:15)
[2018-11-06] MEDS ORDERED: FUROSEMIDE 40 MG/4 ML VIAL. IVP ONE ×2 (11:15→14:00)
[2018-11-06] MEDS: SACUBITRIL/VALSARTAN 49/51MG TABLET. PO SCH ×2 (11:42→21:14)
[2018-11-06] MEDS: SPIRONOLACTONE 25 MG TABLET PO SCH (11:42)
[2018-11-06] MEDS: METOPROLOL SUCC 24HR ER 100 MG TAB.ER.24H. PO SCH (11:42)
[2018-11-06] MEDS: DIGOXIN 125 MCG TABLET. PO SCH (11:43)
[2018-11-06] MEDS: CITALOPRAM 20 MG TABLET. PO SCH (11:43)
[2018-11-06] MEDS: ASPIRIN ENTERIC COATED 81 MG TABLET.DR. PO SCH (11:43)
--- NOTE | 2018-11-06 12:01 | EKG ---
[facility] [address] [place] [address] Test Date: 2018-11-06 Test Time: 07:56:30 Pat Name: HERIBERTO STEEN Department: Room: Gender: M Cia Agent: : [id number] Requested By: DAI CHAND Order Number: [id number] Reading MD: Measurements Intervals [place] Rate: 105 P: 49 ND: 150 QRS: 8 QRSD: 116 T: 114 QT: 356 QTc: 475 Interpretive Statements SINUS TACHYCARDIA LEFT ATRIAL ABNORMALITY T ABNORMALITY IN LATERAL LEADS ABNORMAL ECG RI6.01 No previous ECG available for comparison
[2018-11-06] MEDS ORDERED: PERFLUTREN PROTEIN-A MICROSPHR 0.22 MG/ML 3 ML VIAL. IV ONE (15:23)
--- NOTE | 2018-11-06 15:44 | NUR ---
1400 dose of Lasix non administered, due to 40mg Lasix given @ 1130
[2018-11-06] MEDS ORDERED: PERFLUTREN PROTEIN-A MICROSPHR 0.22 MG/ML 3 ML VIAL. IV PRN (15:45)
--- NOTE | 2018-11-06 17:09 | CARD ---
MR#: [id number] Date of Study: 11/06/2018 Ordering Physician: DUC SANDHU, Referring Physician: BRIANNA FISHER Tech: Marilu Khalil RDCS APPROVED REPORT EXAM: Two-dimensional and M-mode echocardiogram with Doppler and color Doppler. Other Information Quality : Good INDICATION Non-Ischemic Cardiomyopathy Echo Enhancing Agent Agent/Amount Used: Optison 3mL 2D DIMENSIONS RVDd3.2 (2.9-3.5cm)Left Atrium(2D)5.5 (1.6-4.0cm) IVSd1.1 (0.7-1.1cm)Aortic Root(2D)3.3 (2.0-3.7cm) LVDd8.6 (3.9-5.9cm)LVOT Diameter2.6 (1.8-2.4cm) PWd1.1 (0.7-1.1cm)LVDs8.0 (2.5-4.0cm) FS (%) 6.9 %SV59.1 ml M-Mode DIMENSIONS MV EPSS3.2 (<0.5cm) Aortic Valve AoV Peak Iker.87.2cm/sAoV VTI12.5cm AO Peak GR.3.0mmHgLVOT VTI 6.86cm AO Mean GR.2mmHgAVA (VTI)2.80cm2 TDI Lateral E' P. V2.83cm/sMedial E' P. V3.02cm/s Tricuspid Valve TR P. Zsitpjip646ig/sRAP [id number] TR Peak Gr.[id number] LEFT VENTRICLE The Left Ventricle is severely dilated. There is normal left ventricular wall thickness. Left ventric le systolic function is severely impaired. The Ejection Fraction is estimated at 15%. There is severe global hypokinesis of the left ventricle. A possible left ventricle apical thrombus is present. RIGHT VENTRICLE The right ventricle is normal size. The right ventricular systolic function is normal. There are frances ce leads in the right ventricle and atrium. ATRIA The left atrium is moderately dilated. The right atrium size is normal. A device lead is seen in the right atrium consistent with history. The interatrial septum is intact with no evidence for an atrial septal defect or patent foramen ovale as noted on 2-D or Doppler imaging. AORTIC VALVE The aortic valve is calcified but opens well. Doppler and Color Flow revealed no significant aortic r egurgitation. There is no significant aortic valvular stenosis. MITRAL VALVE The mitral valve is normal in structure and function. There is no evidence of mitral valve prolapse. There is no mitral valve stenosis. Doppler and Color-flow revealed trace to mild mitral regurgitation . TRICUSPID VALVE The tricuspid valve is normal in structure and function. Doppler and Color Flow revealed trace tricus pid regurgitation. The PA pressure was estimated at 37 mmHg. There is no tricuspid valve stenosis. PULMONIC VALVE The pulmonic valve is not well visualized. Doppler and Color Flow revealed no pulmonic valvular regur gitation. There is no pulmonic valvular stenosis. GREAT VESSELS The aortic root is normal in size. The ascending aorta is not well seen. The IVC is normal in size an d collapses >50% with inspiration. PERICARDIAL EFFUSION There is no evidence of significant pericardial effusion. Critical Notification Critical Value: No <Conclusion> The Left Ventricle is severely dilated. The Left Ventricle is severely dilated. Left ventricle systolic function is severely impaired. The Ejection Fraction is estimated at 15%. There is severe global hypokinesis of the left ventricle. A possible left ventricle apical thrombus is present. There are device leads in the right ventricle and atrium. Doppler and Color Flow revealed no significant aortic regurgitation. There is no significant aortic valvular stenosis. Doppler and Color-flow revealed trace to mild mitral regurgitation. Doppler and Color Flow revealed trace tricuspid regurgitation. The PA pressure was estimated at 37 mmHg. Signed by : Aren Carranza MD Electronically Approved : 11/06/2018 17:08:19
[2018-11-07 03:00] VITALS: BP 92/59
[2018-11-07 04:37] LABS: BASO # 0.1 x10^3/uL (0.0-0.2); BASO % 1 % (0-3); EOS # 0.2 x10^3/uL (0.0-0.7); EOS % 2 % (0-3); HEMATOCRIT 44.7 % (39.0-53.0); HEMOGLOBIN 15.2 g/dL (13.0-17.5); LYMPH # 2.8 x10^3/uL (1.0-4.8); LYMPH % 29 % (24-48); MEAN CORPUSCULAR HEMOGLOBIN 28 pg (25-35); MEAN CORPUSCULAR HGB CONC 34 g/dL (31-37); MEAN CORPUSCULAR VOLUME 82 fL (79-100); MONO # 0.7 x10^3/uL (0.0-1.1); MONO % 8 % (0-9); NEUT # 6.1 x10^3uL (1.8-7.7); NEUT % 61 % (31-73); PLATELET COUNT 276 x10^3/uL (140-400); RED BLOOD COUNT 5.47 x10^6/uL (4.30-5.70); RED CELL DISTRIBUTION WIDTH 13.7 % (11.5-14.5)
[2018-11-07 05:11] LABS: ALBUMIN 3.7 g/dL (3.4-5.0); ALBUMIN/GLOBULIN RATIO 0.9 (1.0-1.7); CALCIUM 8.8 mg/dL (8.5-10.1); CREATININE 0.8 mg/dL (0.7-1.3); GFR 117.8; POTASSIUM 3.5 mmol/L (3.5-5.1); TOTAL PROTEIN 7.6 g/dL (6.4-8.2)
[2018-11-07 07:00] VITALS: BP 90/66
[2018-11-07] MEDS: SPIRONOLACTONE 25 MG TABLET PO SCH (08:55)
[2018-11-07] MEDS: ASPIRIN ENTERIC COATED 81 MG TABLET.DR. PO SCH (08:55)
[2018-11-07] MEDS: TORSEMIDE 20 MG TABLET. PO SCH (08:55)
[2018-11-07] MEDS: DIGOXIN 125 MCG TABLET. PO SCH (08:55)
[2018-11-07] MEDS: CITALOPRAM 20 MG TABLET. PO SCH (08:55)
[2018-11-07] MEDS: SACUBITRIL/VALSARTAN 49/51MG TABLET. PO SCH (08:56)
[2018-11-07] MEDS: METOPROLOL SUCC 24HR ER 100 MG TAB.ER.24H. PO SCH (09:00)
[2018-11-07 11:00] VITALS: BP 87/62
--- NOTE | 2018-11-07 13:22 | PDOC3 ---
Discharge Summary Visit Information Date of Admission: Nov 06, 2018 Date of Discharge: Nov 07, 2018 Admitting Diagnosis Comment: 1. Mild acute on chronic systolic heart failure 2. NICM: s/p Medtronic AICD. LVEF 15-20% per JELANI 11/2017. 3. Chest pain, atypical. Trop 0.049 3. Hypertension; mildly elevated Final Diagnosis Problems Medical Problems: (1) Chest pain Status: Acute (2) CHF exacerbation Status: Acute Brief Hospital Course Allergies Allergies Coded Allergies Type Severity Reaction Last Updated Verified No Known Medication Allergies Allergy Unknown 11/06/18 Yes lisinopril Adverse Reaction Intermediate COUGH 12/02/17 Yes Vital Signs Vital Signs Date Time Temp Pulse Resp B/P (MAP) Pulse Ox O2 Delivery O2 Flow Rate FiO2 11/07/18 11:00 98.0 81 20 87/62 (70) 98 Room Air 98.0 11/06/18 12:00 2.0 Lab Results Laboratory Tests Test 11/06/18 08:10 11/06/18 18:10 11/07/18 00:15 11/07/18 04:20 White Blood Count 10.3 x10^3/uL (4.0-11.0) 10.0 x10^3/uL (4.0-11.0) Red Blood Count 5.04 x10^6/uL (4.30-5.70) 5.47 x10^6/uL (4.30-5.70) Hemoglobin 14.0 g/dL (13.0-17.5) 15.2 g/dL (13.0-17.5) Hematocrit 41.3 % (39.0-53.0) 44.7 % (39.0-53.0) Mean Corpuscular Volume 82 fL (79-100) 82 fL (79-100) Mean Corpuscular Hemoglobin 28 pg (25-35) 28 pg (25-35) Mean Corpuscular Hemoglobin Concent 34 g/dL (31-37) 34 g/dL (31-37) Red Cell Distribution Width 13.4 % (11.5-14.5) 13.7 % (11.5-14.5) Platelet Count 256 x10^3/uL (140-400) 276 x10^3/uL (140-400) Neutrophils (%) (Auto) 71 % (31-73) 61 % (31-73) Lymphocytes (%) (Auto) 20 % (24-48) 29 % (24-48) Monocytes (%) (Auto) 7 % (0-9) 8 % (0-9) Eosinophils (%) (Auto) 1 % (0-3) 2 % (0-3) Basophils (%) (Auto) 1 % (0-3) 1 % (0-3) Neutrophils # (Auto) 7.3 x10^3uL (1.8-7.7) 6.1 x10^3uL (1.8-7.7) Lymphocytes # (Auto) 2.1 x10^3/uL (1.0-4.8) 2.8 x10^3/uL (1.0-4.8) Monocytes # (Auto) 0.7 x10^3/uL (0.0-1.1) 0.7 x10^3/uL (0.0-1.1) Eosinophils # (Auto) 0.1 x10^3/uL (0.0-0.7) 0.2 x10^3/uL (0.0-0.7) Basophils # (Auto) 0.1 x10^3/uL (0.0-0.2) 0.1 x10^3/uL (0.0-0.2) Prothrombin Time 13.1 SEC (11.7-14.0) Prothromb Time International Ratio 1.0 (0.8-1.1) Activated Partial Thromboplast Time 35 SEC (24-38) Sodium Level 139 mmol/L (136-145) 137 mmol/L (136-145) Potassium Level 3.6 mmol/L (3.5-5.1) 3.5 mmol/L (3.5-5.1) Chloride Level 104 mmol/L (98-107) 102 mmol/L (98-107) Carbon Dioxide Level 23 mmol/L (21-32) 24 mmol/L (21-32) Anion Gap 12 (6-14) 11 (6-14) Blood Urea Nitrogen 11 mg/dL (8-26) 10 mg/dL (8-26) Creatinine 0.7 mg/dL (0.7-1.3) 0.8 mg/dL (0.7-1.3) Estimated GFR (Cockcroft-Gault) 137.4 117.8 BUN/Creatinine Ratio 16 (6-20) 13 (6-20) Glucose Level 111 mg/dL (70-99) 111 mg/dL (70-99) Calcium Level 8.4 mg/dL (8.5-10.1) 8.8 mg/dL (8.5-10.1) Magnesium Level 2.0 mg/dL (1.8-2.4) Total Bilirubin 0.5 mg/dL (0.2-1.0) 1.0 mg/dL (0.2-1.0) Aspartate Amino Transf (AST/SGOT) 34 U/L (15-37) 28 U/L (15-37) Alanine Aminotransferase (ALT/SGPT) 72 U/L (16-63) 64 U/L (16-63) Alkaline Phosphatase 81 U/L (46-116) 82 U/L (46-116) Creatine Kinase 117 U/L (39-308) Creatine Kinase MB (Mass) 1.3 ng/mL (0.0-3.6) Creatine Kinase MB Relative Index 1.1 % (0-4) Troponin I Quantitative 0.049 ng/mL (0.000-0.055) 0.030 ng/mL (0.000-0.055) 0.042 ng/mL (0.000-0.055) CU-Njp-[id number]-Type Natriuretic Peptide 1016 pg/mL (0-124) Total Protein 7.3 g/dL (6.4-8.2) 7.6 g/dL (6.4-8.2) Albumin 3.8 g/dL (3.4-5.0) 3.7 g/dL (3.4-5.0) Albumin/Globulin Ratio 1.1 (1.0-1.7) 0.9 (1.0-1.7) Digoxin Level < 0.2 ng/mL (0.9-2.0) Digoxin Last Dose Date Unknown Digoxin Last Dose Time Unknown Laboratory Tests Test 11/06/18 18:10 11/07/18 00:15 11/07/18 04:20 Troponin I Quantitative 0.030 ng/mL (0.000-0.055) 0.042 ng/mL (0.000-0.055) White Blood Count 10.0 x10^3/uL (4.0-11.0) Red Blood Count 5.47 x10^6/uL (4.30-5.70) Hemoglobin 15.2 g/dL (13.0-17.5) Hematocrit 44.7 % (39.0-53.0) Mean Corpuscular Volume 82 fL (79-100) Mean Corpuscular Hemoglobin 28 pg (25-35) Mean Corpuscular Hemoglobin Concent 34 g/dL (31-37) Red Cell Distribution Width 13.7 % (11.5-14.5) Platelet Count 276 x10^3/uL (140-400) Neutrophils (%) (Auto) 61 % (31-73) Lymphocytes (%) (Auto) 29 % (24-48) Monocytes (%) (Auto) 8 % (0-9) Eosinophils (%) (Auto) 2 % (0-3) Basophils (%) (Auto) 1 % (0-3) Neutrophils # (Auto) 6.1 x10^3uL (1.8-7.7) Lymphocytes # (Auto) 2.8 x10^3/uL (1.0-4.8) Monocytes # (Auto) 0.7 x10^3/uL (0.0-1.1) Eosinophils # (Auto) 0.2 x10^3/uL (0.0-0.7) Basophils # (Auto) 0.1 x10^3/uL (0.0-0.2) Sodium Level 137 mmol/L (136-145) Potassium Level 3.5 mmol/L (3.5-5.1) Chloride Level 102 mmol/L (98-107) Carbon Dioxide Level 24 mmol/L (21-32) Anion Gap 11 (6-14) Blood Urea Nitrogen 10 mg/dL (8-26) Creatinine 0.8 mg/dL (0.7-1.3) Estimated GFR (Cockcroft-Gault) 117.8 BUN/Creatinine Ratio 13 (6-20) Glucose Level 111 mg/dL (70-99) Calcium Level 8.8 mg/dL (8.5-10.1) Total Bilirubin 1.0 mg/dL (0.2-1.0) Aspartate Amino Transf (AST/SGOT) 28 U/L (15-37) Alanine Aminotransferase (ALT/SGPT) 64 U/L (16-63) Alkaline Phosphatase 82 U/L (46-116) Total Protein 7.6 g/dL (6.4-8.2) Albumin 3.7 g/dL (3.4-5.0) Albumin/Globulin Ratio 0.9 (1.0-1.7) Brief Hospital Course Mr. Zarate is a 27 old male who has severe cardiomyopathy at a young age of 27 with EF 15-20% and has indwelling Medtronic AICD. Also on torsemide at home. Admitted for SOA. Got a couple doses Lasix. Feels better. If okayed by cardiol vdiya, home today with no PT needs and to continue all home meds No new Rx Consults cards Procedures performed none dc < 30 Discharge Information Condition at Discharge: Improved, Stable Disposition/Orders: D/C to Home Scheduled Aspirin (Aspirin Ec) 81 Mg Tablet.dr, 81 MG PO DAILYWBK, #30 Ref 2 Prescribed by: JANET CH on 11/08/15 1301 Last Action: Continued on 11/06/181109 by GREG ESCALERA Digoxin (Digoxin) 125 Mcg Tablet, 1 TAB PO DAILY, #30 Ref 5 (Reported) Entered as Reported by: Ivan Sanchez on 06/26/16 0507 Last Action: Continued on 11/06/181109 by GREG ESCALERA Escitalopram Oxalate (Lexapro) 20 Mg Tablet, 20 MG PO DAILY for ANTI-DEPRESSANT, Ref 0 (Reported) Entered as Reported by: KARTHIK MONSON on 05/22/18443 Last Action: Converted on 11/06/181109 by GREG ESCALERA Metoprolol Succinate (Metoprolol Succinate ( Xl )) 100 Mg Tab.er.24h, 1 TAB PO DAILY, #30 Ref 5 (Reported) Entered as Reported by: Ivan Sanchez on 06/26/16 0507 Last Action: Continued on 11/06/181109 by GREG ESCALERA Sacubitril/Valsartan (Entresto 97 mg-103 mg Tablet) 1 Each Tablet, 1 EACH PO BID for cardiac, (Reported) Entered as Reported by: KARTHIK MONSON on 05/22/18443 Last Action: Converted on 11/06/181109 by GREG ESCALERA Spironolactone (Aldactone) 25 Mg Tablet, 12.5 MG PO DAILY for diuretic, (Reported) Entered as Reported by: KARTHIK MONSON on 05/22/18443 Last Action: Converted on 11/06/181109 by GREG ESCALERA Torsemide (Torsemide) 20 Mg Tablet, 10 MG PO DAILY for CHF, (Reported) Entered as Reported by: KARTHIK MONSON on 05/22/18443 Last Action: Converted on 11/06/181109 by GIANNI CARDONA MD Nov 07, 2018 13:22
[2018-11-07 15:00] VITALS: BP 86/55
--- NOTE | 2018-11-07 16:38 | NUR ---
Pt educated on discharge instruction. PIV taken out. Pt belongings home with patient.
--- NOTE | 2018-11-07 17:33 | PDOC ---
PROGRESS NOTES Subjective Subjective Patient seen and examined The patient is feeling much better today. Objective Objective Vital Signs Date Time Temp Pulse Resp B/P (MAP) Pulse Ox O2 Delivery O2 Flow Rate FiO2 11/07/18 15:00 98.1 76 16 86/55 (65) 96 Room Air 98.1 11/06/18 12:00 2.0 Intake and Output 11/07/18 07:00 Intake Total 750 ml Output Total 500 ml Balance 250 ml Intake Oral 750 ml Output Urine Total 500 ml # Voids 1 # Bowel Movements 7 Physical Exam Abdomen: Normal bowel sounds Heart: Regular rate General: No acute distress Lungs: Clear to auscultation Assessment Assessment Problems Medical Problems: (1) Chest pain Status: Acute (2) CHF exacerbation Status: Acute 1. Mild acute on chronic systolic heart failure. Soft. Continuing present medications. Increase activities. Probably home later today from a cardiac viewpoint. Will call for follow-up. 2. NICM: s/p Medtronic AICD. LVEF 15-20% per JELANI 11/2017. 3. Chest pain, atypical. Trop 0.049. Mild demand ischemia. 3. Hypertension; mildly elevated. Also improved today. Continue present treatment. Comment Review of Relevant I have reviewed the following items tyler (where applicable) has been applied. Labs Laboratory Tests Test 11/06/18 08:10 11/06/18 18:10 11/07/18 00:15 11/07/18 04:20 White Blood Count 10.3 x10^3/uL (4.0-11.0) 10.0 x10^3/uL (4.0-11.0) Red Blood Count 5.04 x10^6/uL (4.30-5.70) 5.47 x10^6/uL (4.30-5.70) Hemoglobin 14.0 g/dL (13.0-17.5) 15.2 g/dL (13.0-17.5) Hematocrit 41.3 % (39.0-53.0) 44.7 % (39.0-53.0) Mean Corpuscular Volume 82 fL (79-100) 82 fL (79-100) Mean Corpuscular Hemoglobin 28 pg (25-35) 28 pg (25-35) Mean Corpuscular Hemoglobin Concent 34 g/dL (31-37) 34 g/dL (31-37) Red Cell Distribution Width 13.4 % (11.5-14.5) 13.7 % (11.5-14.5) Platelet Count 256 x10^3/uL (140-400) 276 x10^3/uL (140-400) Neutrophils (%) (Auto) 71 % (31-73) 61 % (31-73) Lymphocytes (%) (Auto) 20 % (24-48) 29 % (24-48) Monocytes (%) (Auto) 7 % (0-9) 8 % (0-9) Eosinophils (%) (Auto) 1 % (0-3) 2 % (0-3) Basophils (%) (Auto) 1 % (0-3) 1 % (0-3) Neutrophils # (Auto) 7.3 x10^3uL (1.8-7.7) 6.1 x10^3uL (1.8-7.7) Lymphocytes # (Auto) 2.1 x10^3/uL (1.0-4.8) 2.8 x10^3/uL (1.0-4.8) Monocytes # (Auto) 0.7 x10^3/uL (0.0-1.1) 0.7 x10^3/uL (0.0-1.1) Eosinophils # (Auto) 0.1 x10^3/uL (0.0-0.7) 0.2 x10^3/uL (0.0-0.7) Basophils # (Auto) 0.1 x10^3/uL (0.0-0.2) 0.1 x10^3/uL (0.0-0.2) Prothrombin Time 13.1 SEC (11.7-14.0) Prothromb Time International Ratio 1.0 (0.8-1.1) Activated Partial Thromboplast Time 35 SEC (24-38) Sodium Level 139 mmol/L (136-145) 137 mmol/L (136-145) Potassium Level 3.6 mmol/L (3.5-5.1) 3.5 mmol/L (3.5-5.1) Chloride Level 104 mmol/L (98-107) 102 mmol/L (98-107) Carbon Dioxide Level 23 mmol/L (21-32) 24 mmol/L (21-32) Anion Gap 12 (6-14) 11 (6-14) Blood Urea Nitrogen 11 mg/dL (8-26) 10 mg/dL (8-26) Creatinine 0.7 mg/dL (0.7-1.3) 0.8 mg/dL (0.7-1.3) Estimated GFR (Cockcroft-Gault) 137.4 117.8 BUN/Creatinine Ratio 16 (6-20) 13 (6-20) Glucose Level 111 mg/dL (70-99) 111 mg/dL (70-99) Calcium Level 8.4 mg/dL (8.5-10.1) 8.8 mg/dL (8.5-10.1) Magnesium Level 2.0 mg/dL (1.8-2.4) Total Bilirubin 0.5 mg/dL (0.2-1.0) 1.0 mg/dL (0.2-1.0) Aspartate Amino Transf (AST/SGOT) 34 U/L (15-37) 28 U/L (15-37) Alanine Aminotransferase (ALT/SGPT) 72 U/L (16-63) 64 U/L (16-63) Alkaline Phosphatase 81 U/L (46-116) 82 U/L (46-116) Creatine Kinase 117 U/L (39-308) Creatine Kinase MB (Mass) 1.3 ng/mL (0.0-3.6) Creatine Kinase MB Relative Index 1.1 % (0-4) Troponin I Quantitative 0.049 ng/mL (0.000-0.055) 0.030 ng/mL (0.000-0.055) 0.042 ng/mL (0.000-0.055) QV-Uba-R-Type Natriuretic Peptide 1016 pg/mL (0-124) Total Protein 7.3 g/dL (6.4-8.2) 7.6 g/dL (6.4-8.2) Albumin 3.8 g/dL (3.4-5.0) 3.7 g/dL (3.4-5.0) Albumin/Globulin Ratio 1.1 (1.0-1.7) 0.9 (1.0-1.7) Digoxin Level < 0.2 ng/mL (0.9-2.0) Digoxin Last Dose Date Unknown Digoxin Last Dose Time Unknown Laboratory Tests Test 11/06/18 18:10 11/07/18 00:15 11/07/18 04:20 Troponin I Quantitative 0.030 ng/mL (0.000-0.055) 0.042 ng/mL (0.000-0.055) White Blood Count 10.0 x10^3/uL (4.0-11.0) Red Blood Count 5.47 x10^6/uL (4.30-5.70) Hemoglobin 15.2 g/dL (13.0-17.5) Hematocrit 44.7 % (39.0-53.0) Mean Corpuscular Volume 82 fL (79-100) Mean Corpuscular Hemoglobin 28 pg (25-35) Mean Corpuscular Hemoglobin Concent 34 g/dL (31-37) Red Cell Distribution Width 13.7 % (11.5-14.5) Platelet Count 276 x10^3/uL (140-400) Neutrophils (%) (Auto) 61 % (31-73) Lymphocytes (%) (Auto) 29 % (24-48) Monocytes (%) (Auto) 8 % (0-9) Eosinophils (%) (Auto) 2 % (0-3) Basophils (%) (Auto) 1 % (0-3) Neutrophils # (Auto) 6.1 x10^3uL (1.8-7.7) Lymphocytes # (Auto) 2.8 x10^3/uL (1.0-4.8) Monocytes # (Auto) 0.7 x10^3/uL (0.0-1.1) Eosinophils # (Auto) 0.2 x10^3/uL (0.0-0.7) Basophils # (Auto) 0.1 x10^3/uL (0.0-0.2) Sodium Level 137 mmol/L (136-145) Potassium Level 3.5 mmol/L (3.5-5.1) Chloride Level 102 mmol/L (98-107) Carbon Dioxide Level 24 mmol/L (21-32) Anion Gap 11 (6-14) Blood Urea Nitrogen 10 mg/dL (8-26) Creatinine 0.8 mg/dL (0.7-1.3) Estimated GFR (Cockcroft-Gault) 117.8 BUN/Creatinine Ratio 13 (6-20) Glucose Level 111 mg/dL (70-99) Calcium Level 8.8 mg/dL (8.5-10.1) Total Bilirubin 1.0 mg/dL (0.2-1.0) Aspartate Amino Transf (AST/SGOT) 28 U/L (15-37) Alanine Aminotransferase (ALT/SGPT) 64 U/L (16-63) Alkaline Phosphatase 82 U/L (46-116) Total Protein 7.6 g/dL (6.4-8.2) Albumin 3.7 g/dL (3.4-5.0) Albumin/Globulin Ratio 0.9 (1.0-1.7) Medications Current Medications Aspirin ([place] Aspirin) 325 mg 1X ONCE PO Last administered on 11/06/18 08:15; Start 11/06/18 at 08:00; Stop 11/06/18 at 08:01; Status DC Aspirin (Ecotrin) 81 mg DAILYWBKFT PO Last administered on 11/07/18 08:55; Start 11/06/18 at 12:00 Digoxin (Lanoxin) 125 mcg DAILY PO Last administered on 11/07/18 08:55; Start 11/06/18 at 12:00 Metoprolol Succinate (Toprol Xl) 100 mg DAILY PO Last administered on 11/06/18 11:42; Start 11/06/18 at 12:00 Citalopram Hydrobromide (CeleXA) 40 mg DAILY PO Last administered on 11/07/18 08:55; Start 11/06/18 at 12:00 Sacubitril/ Valsartan (Entresto 49 Mg-51 Mg) 2 tab BID PO Last administered on 11/07/18 08:56; Start 11/06/18 at 12:00 Spironolactone (Aldactone) 12.5 mg DAILY PO Last administered on 11/07/18 08:55; Start 11/06/18 at 12:00 Torsemide (Demadex) 10 mg DAILY PO Last administered on 11/07/18 08:55; Start 11/06/18 at 10:00 Furosemide (Lasix) 40 mg 1X ONCE IVP Last administered on 11/06/18 11:44; Start 11/06/18 at 11:15; Stop 11/06/18 at 11:17; Status DC Potassium Chloride (Klor-Con) 20 meq 1X ONCE PO Last administered on 11/06/18at 11:43; Start 11/06/18 at 11:15; Stop 11/06/18 at 11:17; Status DC Furosemide (Lasix) 40 mg 1X ONCE IVP ; Start 11/06/18 at 14:00; Stop 11/06/18 at 14:01; Status DC Perflutren Protein Type A Microsphe (Optison) 0.66 mg STK-MED ONCE IV ; Start 11/06/18 at 15:23; Stop 11/06/18 at 15:24; Status DC Perflutren Protein Type A Microsphe (Optison) 0.66 mg PRN 1X PRN IV SEE COMMENTS Last administered on 11/06/18at 15:46; Start 11/06/18 at 15:45; Stop 11/07/18 at 15:44; Status DC Active Scripts Active Aspirin Ec (Aspirin) 81 Mg Tablet.dr 81 Mg PO DAILYWBKFT Reported Lexapro (Escitalopram Oxalate) 20 Mg Tablet 20 Mg PO DAILY Entresto 97 mg-103 mg Tablet (Sacubitril/Valsartan) 1 Each Tablet 1 Each PO BID Torsemide 20 Mg Tablet 10 Mg PO DAILY Aldactone (Spironolactone) 25 Mg Tablet 12.5 Mg PO DAILY Digoxin 125 Mcg Tablet 1 Tab PO DAILY Metoprolol Succinate ( Xl ) (Metoprolol Succinate) 100 Mg Tab.er.24h 1 Tab PO DAILY Vitals/I & O Vital Sign - Last 24 Hours 11/06/18 11/06/18 11/06/18 11/06/18 19:00 20:00 21:14 23:00 Temp 98.4 98.3 98.4 98.3 Pulse 96 96 84 Resp 20 20 B/P (MAP) 115/67 (83) 115/67 115/67 (83) Pulse Ox 94 94 O2 Delivery Room Air Room Air Room Air 11/07/18 11/07/18 11/07/18 11/07/18 03:00 07:00 08:00 08:55 Temp 98.1 97.9 98.1 97.9 Pulse 81 82 80 Resp 20 18 B/P (MAP) 92/59 (70) 90/66 (74) 106/64 Pulse Ox 96 98 O2 Delivery Room Air Room Air Room Air 11/07/18 11/07/18 11/07/18 11/07/18 08:56 09:00 11:00 15:00 Temp 98.0 98.1 98.0 98.1 Pulse 80 81 76 Resp 20 16 B/P (MAP) 106/64 87/62 87/62 (70) 86/55 (65) Pulse Ox 98 96 O2 Delivery Room Air Room Air Intake and Output 11/06/18 11/06/18 11/07/18 15:00 23:00 07:00 Intake Total 750 ml Output Total 500 ml Balance -500 ml 750 ml JOSE ANGEL ALSTON MD Nov 07, 2018 17:33
== END 2018-11-07 16:45 | disposition home or self-care (01) | DRG 291 ==
LOC: ER 07:45 → 1 WEST ICU 09:15
PROVIDERS: ADMIT Family Medicine; ATTEND Family Medicine
DX: I11.0 Hypertensive heart disease with heart failure (principal); J96.01 Acute respiratory failure with hypoxia; I24.8 Other forms of acute ischemic heart disease; I34.0 Nonrheumatic mitral (valve) insufficiency; I42.9 Cardiomyopathy, unspecified; I50.23 Acute on chronic systolic (congestive) heart failure; Z79.899 Other long term (current) drug therapy; Z82.49 Family history of ischemic heart disease and other diseases of the circulatory system; Z83.3 Family history of diabetes mellitus; Z86.79 Personal history of other diseases of the circulatory system; Z91.19 Patient's noncompliance with other medical treatment and regimen; Z95.810 Presence of automatic (implantable) cardiac defibrillator; E66.01 Morbid (severe) obesity due to excess calories; Z68.35 Body mass index [BMI] 35.0-35.9, adult; Z88.8 Allergy status to other drugs, medicaments and biological substances
CPT/HCPCS: 36415; 71045; 80053; 80162; 82550; 82553; 83735; 83880; 84484; 85025; 85610; 85730; 93005; C8929; J1940; Q9956

== ENCOUNTER 2019-04-11 23:44 | Inpatient (IN) | payer SELFPAY ==
[~2019-04-11] VITALS: Ht 177.8 cm; Wt 102.5 kg
[~2019-04-11 23:44] MED LIST changes: +CEFD300C PO; +DOXY100T PO
--- NOTE | 2019-04-12 01:28 | RAD ---
Indication: Shortness of breath TECHNIQUE:Portable AP chest X-ray COMPARISON: 04/09/2019 FINDINGS: Heart is moderately enlarged in size. Prominent previously seen bilateral interstitial opacities. No pneumothorax or pleural effusion. Stable position of cardiac pacer. Visualized bony thorax within normal limits. IMPRESSION: Improvement in previously seen interstitial pulmonary edema. Electronically signed by: Adam Edwards DO (04/12/2019 1:25 AM) [id number]
[2019-04-12 02:01] LABS: BASO # 0.1 x10^3/uL (0.0-0.2); BASO % 1 % (0-3); EOS # 0.3 x10^3/uL (0.0-0.7); EOS % 3 % (0-3); HEMATOCRIT 42.2 % (39.0-53.0); LYMPH % 28 % (24-48); MEAN CORPUSCULAR HEMOGLOBIN 27 pg (25-35); MEAN CORPUSCULAR HGB CONC 33 g/dL (31-37); MEAN CORPUSCULAR VOLUME 81 fL (79-100); MONO # 0.6 x10^3/uL (0.0-1.1); MONO % 6 % (0-9); NEUT # 6.7 x10^3/uL (1.8-7.7); NEUT % 63 % (31-73); PLATELET COUNT 285 x10^3/uL (140-400); RED BLOOD COUNT 5.19 x10^6/uL (4.30-5.70); RED CELL DISTRIBUTION WIDTH 14.2 % (11.5-14.5); WHITE BLOOD COUNT 10.8 x10^3/uL (4.0-11.0)
[2019-04-12 02:10] LABS: CALCIUM 8.7 mg/dL (8.5-10.1); CREATININE 0.8 mg/dL (0.7-1.3); GFR 116.9; POTASSIUM 3.7 mmol/L (3.5-5.1)
[2019-04-12 02:16] LABS: ALBUMIN 3.5 g/dL (3.4-5.0); TOTAL BILIRUBIN 0.4 mg/dL (0.2-1.0); TOTAL PROTEIN 6.9 g/dL (6.4-8.2)
--- NOTE | 2019-04-12 02:35 | PHYS DOC ---
Past Medical History Past Medical History: CHF, Hypertension Additional Past Medical Histor: endocarditis Past Surgical History: Other Additional Past Surgical Histo: DEFIB PLACEMENT Alcohol Use: None Drug Use: None Adult General Chief Complaint Chief Complaint: WEAKNESS/GENERALIZED HPI HPI 28 yo male presents to the emergency department with complaints of shortness of breath, chest pain. Patient was discharged from this facility today with known history of severe nonischemic around 3, ejection fraction 10%, systolic congestive heart failure. Patient states he was discharged today however did not fill his medications. He presents tonight with increasing shortness of breath and chest pain. He as seen cardiology and is followed as an outpatient. Nothing makes his symptoms worse nothing makes his symptoms better. Initial saturations 97% however patient did drop to 87-89% while resting. Exertion makes his symptoms worse, lying flat makes his symptoms worse. Review of Systems Review of Systems Constitutional: Denies fever or chills [] Respiratory: Short of breath Cardiovascular: No additional information not addressed in HPI [] GI: Denies abdominal pain, nausea, vomiting, bloody stools or diarrhea [] Musculoskeletal: Denies back pain or joint pain [] Integument: Denies rash or skin lesions [] Neurologic: Denies headache, focal weakness or sensory changes [] All other systems were reviewed and found to be within normal limits, except as documented in this note. Allergies Allergies Allergies Coded Allergies Type Severity Reaction Last Updated Verified lisinopril Adverse Reaction Intermediate COUGH 12/02/17 Yes Physical Exam Physical Exam Constitutional: Well developed, well nourished, mild distress, non-toxic appearance. [] HENT: Normocephalic, atraumatic, bilateral external ears normal, oropharynx moist, no oral exudates, nose normal. [] Eyes: PERRLA, EOMI, conjunctiva normal, no discharge. [] Cardiovascular:Heart rate regular rhythm, no murmur [] Lungs & Thorax: Decreased breath sounds, crackles appreciated at the base Abdomen: Bowel sounds normal, soft, no tenderness, no masses, no pulsatile masses. [] Skin: Warm, dry, no erythema, no rash. [] Back: No tenderness, no CVA tenderness. [] Extremities: No tenderness, no cyanosis, no clubbing, ROM intact, no edema. [] Neurologic: Alert and oriented X 3, no focal deficits noted. [] Psychologic: Affect normal, judgement normal, mood normal. [] Current Patient Data Vital Signs Vital Signs Date Time Temp Pulse Resp B/P (MAP) Pulse Ox O2 Delivery O2 Flow Rate FiO2 04/12/19 02:00 80 32 94 04/11/19 23:51 98.1 109/71 (84) Room Air 98.1 Lab Values Laboratory Tests Test 04/12/19 01:30 White Blood Count 10.8 x10^3/uL (4.0-11.0) Red Blood Count 5.19 x10^6/uL (4.30-5.70) Hemoglobin 14.0 g/dL (13.0-17.5) Hematocrit 42.2 % (39.0-53.0) Mean Corpuscular Volume 81 fL (79-100) Mean Corpuscular Hemoglobin 27 pg (25-35) Mean Corpuscular Hemoglobin Concent 33 g/dL (31-37) Red Cell Distribution Width 14.2 % (11.5-14.5) Platelet Count 285 x10^3/uL (140-400) Neutrophils (%) (Auto) 63 % (31-73) Lymphocytes (%) (Auto) 28 % (24-48) Monocytes (%) (Auto) 6 % (0-9) Eosinophils (%) (Auto) 3 % (0-3) Basophils (%) (Auto) 1 % (0-3) Neutrophils # (Auto) 6.7 x10^3/uL (1.8-7.7) Lymphocytes # (Auto) 3.0 x10^3/uL (1.0-4.8) Monocytes # (Auto) 0.6 x10^3/uL (0.0-1.1) Eosinophils # (Auto) 0.3 x10^3/uL (0.0-0.7) Basophils # (Auto) 0.1 x10^3/uL (0.0-0.2) Sodium Level 139 mmol/L (136-145) Potassium Level 3.7 mmol/L (3.5-5.1) Chloride Level 102 mmol/L (98-107) Carbon Dioxide Level 25 mmol/L (21-32) Anion Gap 12 (6-14) Blood Urea Nitrogen 15 mg/dL (8-26) Creatinine 0.8 mg/dL (0.7-1.3) Estimated GFR (Cockcroft-Gault) 116.9 BUN/Creatinine Ratio 19 (6-20) Glucose Level 96 mg/dL (70-99) Calcium Level 8.7 mg/dL (8.5-10.1) Total Bilirubin 0.4 mg/dL (0.2-1.0) Aspartate Amino Transferase (AST) 17 U/L (15-37) Alanine Aminotransferase (ALT) 21 U/L (16-63) Alkaline Phosphatase 67 U/L (46-116) Troponin I Quantitative < 0.017 ng/mL (0.000-0.055) XX-Tun-V-Type Natriuretic Peptide 1577 pg/mL (0-124) H Total Protein 6.9 g/dL (6.4-8.2) Albumin 3.5 g/dL (3.4-5.0) Albumin/Globulin Ratio 1.0 (1.0-1.7) Laboratory Tests 04/12/19 01:30 Laboratory Tests 04/12/19 01:30 EKG EKG [] Radiology/Procedures Radiology/Procedures [] Course & Med Decision Making Course & Med Decision Making Pertinent Labs and Imaging studies reviewed. (See chart for details) []28 yo male presents to the emergency department with complaints of shortness of breath, chest pain. Patient was discharged from this facility today with known history of severe nonischemic around 3, ejection fraction 10%, systolic congestive heart failure. Patient states he was discharged today however did not fill his medications. He presents tonight with increasing shortness of breath and chest pain. He as seen cardiology and is followed as an outpatient. Nothing makes his symptoms worse nothing makes his symptoms better. Initial saturations 97% however patient did drop to 87-89% while resting. Exertion makes his symptoms worse, lying flat makes his symptoms worse. Labs and imaging reviewed, metabolic profile unremarkable, BNP elevated at 1500 previously has been up to at least 5000. KG reviewed normal sinus rhythm, left axis deviation no evidence of ST elevation AR. Chest x-ray actually showed improvement of pulmonary edema however given patient's decreased oxygen sat uration 87-89% while sleeping, Lasix by mouth provided with recommendations for further admit and cardiology consultation. It sounds as if patient had been asking to be discharged and subsequently was discharged home because he needed to work however feels now this is likely too soon. Discussed admission with patient and at the bedside Dragon Disclaimer Erika Disclaimer This electronic medical record was generated, in whole or in part, using a voice recognition dictation system. Departure Departure Impression: Primary Impression: Chest pain Additional Impressions: Acute on chronic systolic CHF (congestive heart failure) Hypoxia Disposition: ADMITTED INPATIENT Admitting Physician: JOSE A Condition: STABLE Referrals: NO PCP (PCP) Problem Qualifiers Primary Impression: Chest pain Chest pain type: unspecified Qualified Codes: R07.9 - Chest pain, unspecified YEMI QUINTANILLA MD Apr 12, 2019 02:34
[2019-04-12] MEDS ORDERED: FUROSEMIDE 40 MG TABLET. PO ONE (02:45)
[2019-04-12] MEDS ORDERED: ACETAMINOPHEN 325 MG TABLET. PO PRN (02:45)
[2019-04-12] MEDS ORDERED: ONDANSETRON PF 4 MG/2 ML VIAL. IV PRN (02:45)
[2019-04-12 04:41] VITALS: BP 106/62
[2019-04-12 07:00] VITALS: BP 84/48
--- NOTE | 2019-04-12 08:40 | EKG ---
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
--- NOTE | 2019-04-12 09:55 | PDOC ---
PEYTON ALEMAN GLUELINE WORKER 04/12/19 0955: CARDIO Progress Notes Date and Time Date of Service 04/12/2019 Time of Evaluation 0930 Subjective Subjective: No Chest Pain, No shortness of breath, No Palpitations Vitals Vitals Vital Signs Date Time Temp Pulse Resp B/P (MAP) Pulse Ox O2 Delivery O2 Flow Rate FiO2 04/12/19 07:00 97.9 83 20 84/48 (60) 98 Nasal Cannula 2.0 97.9 Weight Weight [ ] Input and Output Intake and Output Intake and Output 04/12/19 07:00 Intake Total 0 ml Balance 0 ml Intake Oral 0 ml Laboratory Labs Laboratory Tests Test 04/12/19 01:30 04/12/19 07:45 White Blood Count 10.8 x10^3/uL (4.0-11.0) Red Blood Count 5.19 x10^6/uL (4.30-5.70) Hemoglobin 14.0 g/dL (13.0-17.5) Hematocrit 42.2 % (39.0-53.0) Mean Corpuscular Volume 81 fL (79-100) Mean Corpuscular Hemoglobin 27 pg (25-35) Mean Corpuscular Hemoglobin Concent 33 g/dL (31-37) Red Cell Distribution Width 14.2 % (11.5-14.5) Platelet Count 285 x10^3/uL (140-400) Neutrophils (%) (Auto) 63 % (31-73) Lymphocytes (%) (Auto) 28 % (24-48) Monocytes (%) (Auto) 6 % (0-9) Eosinophils (%) (Auto) 3 % (0-3) Basophils (%) (Auto) 1 % (0-3) Neutrophils # (Auto) 6.7 x10^3/uL (1.8-7.7) Lymphocytes # (Auto) 3.0 x10^3/uL (1.0-4.8) Monocytes # (Auto) 0.6 x10^3/uL (0.0-1.1) Eosinophils # (Auto) 0.3 x10^3/uL (0.0-0.7) Basophils # (Auto) 0.1 x10^3/uL (0.0-0.2) Sodium Level 139 mmol/L (136-145) Potassium Level 3.7 mmol/L (3.5-5.1) Chloride Level 102 mmol/L (98-107) Carbon Dioxide Level 25 mmol/L (21-32) Anion Gap 12 (6-14) Blood Urea Nitrogen 15 mg/dL (8-26) Creatinine 0.8 mg/dL (0.7-1.3) Estimated GFR (Cockcroft-Gault) 116.9 BUN/Creatinine Ratio 19 (6-20) Glucose Level 96 mg/dL (70-99) Calcium Level 8.7 mg/dL (8.5-10.1) Total Bilirubin 0.4 mg/dL (0.2-1.0) Aspartate Amino Transf (AST/SGOT) 17 U/L (15-37) Alanine Aminotransferase (ALT/SGPT) 21 U/L (16-63) Alkaline Phosphatase 67 U/L (46-116) Troponin I Quantitative < 0.017 ng/mL (0.000-0.055) < 0.017 ng/mL (0.000-0.055) LO-Vvy-W-Type Natriuretic Peptide 1577 pg/mL (0-124) Total Protein 6.9 g/dL (6.4-8.2) Albumin 3.5 g/dL (3.4-5.0) Albumin/Globulin Ratio 1.0 (1.0-1.7) Physical Exam HEENT: Neck Supple W Full Motion Chest: Symmetric LUNGS: Clear to Auscultation Heart: S1S2, RRR (SR) Abdomen: Soft N/T Extremities: No Edema, No Calf Tenderness Neurology: alert, oriented, follow commands Assessment Assessment HPI: This is a 28 yo male readmitted for complains of ches pain and SOA. He was releaased yesterday and was doing well at discharge. He went to work but only did it for an hour as reported. Apparently per staff pt disclosed that he did not even fill his meds and currently does not have any health insurance hence he was denied at [facility] at some point for potential consideration for heart transplant. To this point he has been noted with significant noncompliance with multiple f/u cancellations in our office. Upon admission his VSS and tests have been unremarkable and no acute CHF. He presented wtih midsternal CP that radiated to abdomen. Complains of SOA and weakness. He has had significant past cardiac workup. 1. Atypical CP: noncardiac 2. Chronic systolic heart failure 3. NICM: s/p Medtronic AICD. LVEF 15% 4. Hypertension; low end this AM due to lasix 5. Hypokalemia; replaced 6. Severe noncompliance Recommendations 1. Continue with secondary prevention measures. torsemide, aldactone, BB 2. Replace K. May need to hold off entreato with low end BP or decrease dose as he appears to not have been taking this outpt, will review his dosing from previous stay. Will check in office for any possibility of assistance, samples were provided before 3. Follow up in 3-4 weeks. Discussed lifestyle modifications and compliance. 4. 2L FR. daily wt. Low Na diet 5. 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 6. 6 Min walk. SS consult. JORGE ADAMS MD 04/12/19 1712: CARDIO Progress Notes Assessment Assessment Patient seen and examined. Agree with CERTIFIED VETERINARY TECHNICIAN's assessment and plan. Chest pain atypical and noncardiac Chronic systolic heart failure better compensated Agree with initiating entresto to optimize therapy Follow-up with patient at [facility] for possible heart transplant PEYTON Hernandez APRN Apr 12, 2019 09:55 JORGE ADAMS MD Apr 12, 2019 17:12
[2019-04-12 10:23] LABS: CALCIUM 8.3 mg/dL (8.5-10.1); CREATININE 0.7 mg/dL (0.7-1.3); GFR 136.3; MAGNESIUM 1.9 mg/dL (1.8-2.4); POTASSIUM 3.3 mmol/L (3.5-5.1)
[2019-04-12] MEDS ORDERED: POTASSIUM CHLORIDE 20 MEQ TABLET.ER. PO ONE (11:00)
[2019-04-12] MEDS: CEFDINIR 300 MG CAPSULE PO SCH ×2 (12:39→21:42)
[2019-04-12] MEDS: ASPIRIN ENTERIC COATED 81 MG TABLET.DR. PO SCH (12:39)
[2019-04-12] MEDS: DIGOXIN 125 MCG TABLET. PO SCH (12:39)
[2019-04-12] MEDS: SPIRONOLACTONE 25 MG TABLET PO SCH (12:40)
[2019-04-12] MEDS: DOXYCYCLINE HYCLATE 100 MG TABLET PO SCH ×2 (12:40→21:42)
[2019-04-12] MEDS: TORSEMIDE 20 MG TABLET. PO SCH (12:41)
[2019-04-12] MEDS: METOPROLOL SUCC 24HR ER 100 MG TAB.ER.24H. PO SCH (12:41)
[2019-04-12] MEDS ORDERED: SACUBITRIL/VALSARTAN 49/51MG TABLET. PO SCH (13:00)
--- NOTE | 2019-04-12 15:20 | NUR ---
SS following for discharge planning. SS reviewed pt chart. Pt is from home and is currently on room air. Pt is self pay pt. HCFS following for self pay status. Pt discharged from [facility] on 04/11/2019. SS provided pt with resources for [employer] financial assistance, [facility], [facility] services, $4 medication list, and Good RX card. 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 Pt reports that he makes $40,000/year and will be able to get benefits if he can go back to work. Discharge order on the chart.
[2019-04-12] MEDS ORDERED: SACU1TAB PO (15:37)
--- NOTE | 2019-04-12 18:13 | NUR ---
Pt has concerns regarding insurance and his condition. Physician notified and order given to cancel the DC. Physician will speak with patient and social worker masters tomorrow regarding disability application. Pt aware of situation and states "I feel better".
--- NOTE | 2019-04-12 18:44 | SSS ---
ADMIT DATE: 04/12/2019 CHIEF COMPLAINT: Chest pain, abdominal pain, and hypoxia. HISTORY OF PRESENT ILLNESS: The patient is a pleasant 28-year-old male, who has a 10% ejection fraction. Basically, he has a heart transplant, but seems to be noncompliant with going to the facilities that do heart transplants. He was apparently on the list for a transplant at [facility], but states he has now been taken off the list because of various reasons. Basically, he is now short of breath, complains of abdominal pain and chest pain. I discussed the case with the ER physician. We have admitted the patient. This morning, he is being examined in the cardiac floor. Heart tones were normal with a soft S1, S2 and S3. Lungs showing some fine crackles, but at baseline. Abdomen is soft, positive bowel sounds. Extremities, trace edema. Skin, no rashes. Psychiatric, he is depressed. Vascular, slow capillary refill. PAST MEDICAL HISTORY: Including heart failure. ALLERGIES: None. SOCIAL HISTORY: Does not drink, smoke or take drugs. MEDICATIONS: Reviewed, please refer to the MRAD. REVIEW OF SYSTEMS: GENERAL: No history of weight change, weakness or fevers. SKIN: No bruising, hair changes or rashes. EYES: No blurred, double or loss of vision. NOSE AND THROAT: No history of nosebleeds, hoarseness or sore throat. HEART: No history of palpitations, chest pain or shortness of breath on exertion. LUNGS: Denies cough, hemoptysis, wheezing, but he complains of shortness of breath. GASTROINTESTINAL: Denies changes in appetite, nausea, vomiting, diarrhea or constipation. GENITOURINARY: No history of frequency, urgency, hesitancy or nocturia. NEUROLOGIC: Denies history of numbness, tingling, tremor or weakness. PSYCHIATRIC: No history of panic, anxiety or depression. ENDOCRINE: No history of heat or cold intolerance, polyuria or polydipsia. EXTREMITIES: Denies muscle weakness, joint pain, pain on walking or stiffness. ASSESSMENT AND PLAN: Resolving acute on chronic systolic and diastolic heart failure with noncompliance. Again, we admitted the patient. We have diuresed him, so we consulted Cardiology. We walked the patient with physical therapy and he seems to be at his baseline. If possible, we plan to discharge and see if okay with Cardiology. DISPOSITION: Home. ACTIVITY: As tolerated. DIET: Low sodium. MEDICATIONS: Please see the MRAD. FOLLOWUP: Follow up with [facility], so he came back on the transplant list. TOTAL TIME: 32 minutes. DAYANNA BULLOCK DO DR: WILLIAMS/grady JOB#: [id number] / [id number]
[2019-04-12 19:50] VITALS: BP 94/50
[2019-04-12] MEDS: SACUBITRIL/VALSARTAN 24/26MG TABLET. PO SCH (21:43)
[2019-04-12 23:00] VITALS: BP 101/59
[2019-04-13 03:00] VITALS: BP 114/71
[2019-04-13] MEDS ORDERED: HYDROcodone/APAP 5/325MG 1 TAB TABLET PO PRN (04:45)
[2019-04-13 05:33] LABS: BASO # 0.1 x10^3/uL (0.0-0.2); BASO % 1 % (0-3); EOS # 0.2 x10^3/uL (0.0-0.7); EOS % 2 % (0-3); HEMATOCRIT 39.8 % (39.0-53.0); HEMOGLOBIN 13.4 g/dL (13.0-17.5); LYMPH # 2.3 x10^3/uL (1.0-4.8); LYMPH % 26 % (24-48); MEAN CORPUSCULAR HEMOGLOBIN 27 pg (25-35); MEAN CORPUSCULAR HGB CONC 34 g/dL (31-37); MEAN CORPUSCULAR VOLUME 81 fL (79-100); MONO # 0.7 x10^3/uL (0.0-1.1); MONO % 8 % (0-9); NEUT # 5.7 x10^3/uL (1.8-7.7); NEUT % 64 % (31-73); PLATELET COUNT 260 x10^3/uL (140-400); RED BLOOD COUNT 4.92 x10^6/uL (4.30-5.70); WHITE BLOOD COUNT 8.9 x10^3/uL (4.0-11.0)
[2019-04-13 06:21] LABS: ALBUMIN 3.3 g/dL (3.4-5.0); ALBUMIN/GLOBULIN RATIO 0.8 (1.0-1.7); CALCIUM 8.5 mg/dL (8.5-10.1); CREATININE 0.8 mg/dL (0.7-1.3); GFR 116.9; POTASSIUM 3.6 mmol/L (3.5-5.1); TOTAL BILIRUBIN 0.3 mg/dL (0.2-1.0); TOTAL PROTEIN 7.2 g/dL (6.4-8.2)
[2019-04-13 07:00] VITALS: BP 106/67
[2019-04-13] MEDS: SACUBITRIL/VALSARTAN 24/26MG TABLET. PO SCH (08:24)
[2019-04-13] MEDS: CEFDINIR 300 MG CAPSULE PO SCH (08:24)
[2019-04-13] MEDS: DOXYCYCLINE HYCLATE 100 MG TABLET PO SCH (08:24)
[2019-04-13] MEDS: TORSEMIDE 20 MG TABLET. PO SCH (08:25)
[2019-04-13] MEDS: DIGOXIN 125 MCG TABLET. PO SCH (08:25)
[2019-04-13] MEDS: ASPIRIN ENTERIC COATED 81 MG TABLET.DR. PO SCH (08:25)
[2019-04-13] MEDS: METOPROLOL SUCC 24HR ER 100 MG TAB.ER.24H. PO SCH (08:25)
[2019-04-13] MEDS: SPIRONOLACTONE 25 MG TABLET PO SCH (08:26)
[2019-04-13] MEDS ORDERED: PERFLUTREN PROTEIN-A MICROSPHR 0.22 MG/ML 3 ML VIAL. IV ONE ×2 (10:39→10:45)
[2019-04-13 11:00] VITALS: BP 99/68
--- NOTE | 2019-04-13 11:38 | CARD ---
MR#: [id number] Date of Study: 04/13/2019 Ordering Physician: DAYANNA BULLOCK, Referring Physician: Shailesh WEST: Eileen Ambriz APPROVED REPORT EXAM: Two-dimensional and M-mode echocardiogram with Doppler and color Doppler. Other Information Quality : AverageHR: 88bpm INDICATION Dyspnea Echo Enhancing Agent Indication: Rule out thrombus Agent/Amount Used: Optison 2mL 2D DIMENSIONS RVDd3.9 (2.9-3.5cm)Left Atrium(2D)6.0 (1.6-4.0cm) IVSd1.0 (0.7-1.1cm)Aortic Root(2D)2.8 (2.0-3.7cm) LVDd7.2 (3.9-5.9cm)LVOT Diameter2.3 (1.8-2.4cm) PWd1.1 (0.7-1.1cm)LVDs7.1 (2.5-4.0cm) FS (%) 1.4 %SV8.2 ml Aortic Valve AoV Peak Iker.110.5cm/sAoV VTI21.5cm AO Peak GR.4.9mmHgLVOT Peak Iker.79.3cm/s AO Mean GR.3mmHgAVA (VMAX)3.09cm2 Mitral Valve MV E Irgjvpqv421.9cm/sMV E Peak Gr.8mmHg MV DECEL [id number] A Ixucmpna28.0cm/s MV E Mean Gr.2mmHgE/A Ratio1.9 Pulmonary Valve PV Peak Reorkbzo96.2cm/s Tricuspid Valve TR P. Rmgsrexl776hc/sTR Peak Gr.24mmHg Pulmonary Vein S1 Sraltnha11.7cm/sD2 Xlawphjp20.6cm/s LEFT VENTRICLE The Left Ventricle is severely dilated. Cannot rule out apical clot. There is mild septal left ventri cular hypertrophy. The ejection fraction is severely impaired. The Ejection Fraction is 10%. There is severe global hypokinesis of the left ventricle. Transmitral Doppler flow pattern is Grade III-rever sible restrictive diastolic dysfunction. RIGHT VENTRICLE The right ventricle is mildly dilated. The right ventricular systolic function is normal. There are d evice leads in the right ventricle and atrium. ATRIA The left atrium is moderately dilated. The right atrium size is normal. There is a small mobile mass at the base of the inter atrial septum in the right atrium The interatrial septum is intact with no evidence for an atrial septal defect or patent foramen ovale as noted on 2-D or Doppler imaging. AORTIC VALVE The aortic valve is normal in structure and function. Doppler and Color Flow revealed no significant aortic regurgitation. There is no significant aortic valvular stenosis. MITRAL VALVE The mitral valve is normal in structure but severely tented. There is no evidence of mitral valve pro lapse. There is no mitral valve stenosis. Doppler and Color-flow revealed moderate mitral regurgitati on. TRICUSPID VALVE The tricuspid valve is normal in structure and function. Doppler and Color Flow revealed mild tricusp id regurgitation. PULMONIC VALVE The pulmonic valve is not well visualized. Doppler and Color Flow revealed no pulmonic valvular regur gitation. GREAT VESSELS The aortic root is normal in size. The ascending aorta is normal in size. The IVC is normal in size a nd collapses >50% with inspiration. PERICARDIAL EFFUSION There is no pleural effusion. There is a trace pericardial effusion. Critical Notification Critical Value: No <Conclusion> The Left Ventricle is severely dilated. Cannot rule out apical clot. The ejection fraction is severely impaired. The Ejection Fraction is 10%. There is severe global hypokinesis of the left ventricle. There are device leads in the right ventricle and atrium. There is a small mobile mass at the base of the inter atrial septum in the right atrium Doppler and Color Flow revealed no significant aortic regurgitation. There is no significant aortic valvular stenosis. Doppler and Color-flow revealed moderate mitral regurgitation. Doppler and Color Flow revealed mild tricuspid regurgitation. Signed by : Aren Carranza MD Electronically Approved : 04/13/2019 11:37:45
--- NOTE | 2019-04-13 11:49 | PDOC ---
[facility] PROGRESS NOTE Chief Complaint Chief Complaint Chronic heart failure exacerbation chest pain abdominal pain hypoxia History of Present Illness History of Present Illness 04/13 Pt seen and examined Pt resting comfortably Pt educated about the risks of his chronic condition and the need for further evaluation and transplant recommendation Discussed the need for disability to manage chronic heart condition Vitals/I&O Vitals/I&O: Vital Signs Date Time Temp Pulse Resp B/P (MAP) Pulse Ox O2 Delivery O2 Flow Rate FiO2 04/13/19 08:25 106/67 04/13/19 08:24 98 04/13/19 08:00 Nasal Cannula 2.0 04/13/19 07:00 97.6 20 98 97.6 I & O 04/12/19 04/12/19 04/13/19 15:00 23:00 07:00 Intake Total 500 ml 1000 ml Balance 500 ml 1000 ml Physical Exam General: Alert, Oriented X3, Cooperative Heart: Regular rate, Normal S1, Normal S2, Other (S3 galop too) Lungs: Crackles Abdomen: Normal bowel sounds, No tenderness Extremities: No edema, Normal pulses Skin: No rashes, No breakdown Labs Labs: Laboratory Tests Test 04/13/19 04:30 White Blood Count 8.9 x10^3/uL (4.0-11.0) Red Blood Count 4.92 x10^6/uL (4.30-5.70) Hemoglobin 13.4 g/dL (13.0-17.5) Hematocrit 39.8 % (39.0-53.0) Mean Corpuscular Volume 81 fL (79-100) Mean Corpuscular Hemoglobin 27 pg (25-35) Mean Corpuscular Hemoglobin Concent 34 g/dL (31-37) Red Cell Distribution Width 14.0 % (11.5-14.5) Platelet Count 260 x10^3/uL (140-400) Neutrophils (%) (Auto) 64 % (31-73) Lymphocytes (%) (Auto) 26 % (24-48) Monocytes (%) (Auto) 8 % (0-9) Eosinophils (%) (Auto) 2 % (0-3) Basophils (%) (Auto) 1 % (0-3) Neutrophils # (Auto) 5.7 x10^3/uL (1.8-7.7) Lymphocytes # (Auto) 2.3 x10^3/uL (1.0-4.8) Monocytes # (Auto) 0.7 x10^3/uL (0.0-1.1) Eosinophils # (Auto) 0.2 x10^3/uL (0.0-0.7) Basophils # (Auto) 0.1 x10^3/uL (0.0-0.2) Sodium Level 139 mmol/L (136-145) Potassium Level 3.6 mmol/L (3.5-5.1) Chloride Level 101 mmol/L (98-107) Carbon Dioxide Level 27 mmol/L (21-32) Anion Gap 11 (6-14) Blood Urea Nitrogen 14 mg/dL (8-26) Creatinine 0.8 mg/dL (0.7-1.3) Estimated GFR (Cockcroft-Gault) 116.9 BUN/Creatinine Ratio 18 (6-20) Glucose Level 92 mg/dL (70-99) Calcium Level 8.5 mg/dL (8.5-10.1) Total Bilirubin 0.3 mg/dL (0.2-1.0) Aspartate Amino Transf (AST/SGOT) 16 U/L (15-37) Alanine Aminotransferase (ALT/SGPT) 15 U/L (16-63) Alkaline Phosphatase 72 U/L (46-116) Total Protein 7.2 g/dL (6.4-8.2) Albumin 3.3 g/dL (3.4-5.0) Albumin/Globulin Ratio 0.8 (1.0-1.7) Review of Systems Review of Systems: Mild CP, mild SOB Assessment and Plan Assessmemt and Plan Problems Medical Problems: (1) Acute on chronic systolic CHF (congestive heart failure) Status: Acute (2) Chest pain Status: Acute (3) Hypoxia Status: Acute Assessment Severe Acute CHF with 10% EF Chest pain Hypoxia Abdominal pain Plan He has SEVERE Acute on Chronic CHF with 10% EF which is terminal without a transplant. His life expectancy is less than a year without a transplant. He can NOT work and I recommend he receive full disability. Needs further work-up and follow up for transplant recommendation HM O2 prn Pain management Full code PT/OT Cardiac monitoring DVT prophylaxis Comment Review of Relevant I have reviewed the following items tyler (where applicable) has been applied. Medications: Current Medications Medications (Trade) Dose Ordered Sig/Heather Route PRN Reason Start Time Stop Time Status Last Admin Dose Admin Aspirin (Ecotrin) 81 mg DAILYWBKFT PO 04/12/19 13:00 04/13/19 08:25 Cefdinir (Omnicef) 300 mg BID PO 04/12/19 13:00 04/13/19 08:24 Digoxin (Lanoxin) 125 mcg DAILY PO 04/12/19 13:00 04/13/19 08:25 Doxycycline Hyclate (Vibra-Tab) 100 mg BID PO 04/12/19 13:00 04/13/19 08:24 Metoprolol Succinate (Toprol Xl) 100 mg DAILY PO 04/12/19 13:00 04/13/19 08:25 Spironolactone (Aldactone) 12.5 mg DAILY PO 04/12/19 13:00 04/13/19 08:26 Torsemide (Demadex) 10 mg DAILY PO 04/12/19 13:00 04/13/19 08:25 Sacubitril/ Valsartan (Entresto 49 Mg-51 Mg) 2 tab BID PO 04/12/19 13:00 04/12/19 19:28 DC 04/12/19 12:41 Sacubitril/ Valsartan (Entresto 24 Mg-26 Mg) 1 tab BID PO 04/12/19 21:00 04/13/19 08:24 Acetaminophen/ Hydrocodone Bitart (Lortab 5/325) 1 tab PRN Q4HRS PRN PO MODERATE PAIN 4-6 04/13/19 04:45 04/13/19 04:46 DAYANNA BULLOCK III DO Apr 13, 2019 11:49
--- NOTE | 2019-04-13 16:04 | NUR ---
SS following up with discharge planning. HCFS met with pt and discussed disability application. Physician statement signed for disability. Discharge order on the chart.
--- NOTE | 2019-04-13 16:20 | PDOC ---
PEYTON ALEMAN SUPERVISOR PUBLICATIONS 04/13/19 1620: CARDIO Progress Notes Date and Time Date of Service 04/13/2019 Time of Evaluation 1600 Subjective Subjective: No Chest Pain, No shortness of breath, No Palpitations Vitals Vitals Vital Signs Date Time Temp Pulse Resp B/P (MAP) Pulse Ox O2 Delivery O2 Flow Rate FiO2 04/13/19 11:00 98.1 95 18 99/68 (78) 97 Room Air 98.1 04/13/19 08:00 2.0 Weight Weight [ ] Input and Output Intake and Output Intake and Output 04/13/19 07:00 Intake Total 1500 ml Balance 1500 ml Intake Oral 1500 ml # Voids 5 Laboratory Labs Laboratory Tests Test 04/13/19 04:30 White Blood Count 8.9 x10^3/uL (4.0-11.0) Red Blood Count 4.92 x10^6/uL (4.30-5.70) Hemoglobin 13.4 g/dL (13.0-17.5) Hematocrit 39.8 % (39.0-53.0) Mean Corpuscular Volume 81 fL (79-100) Mean Corpuscular Hemoglobin 27 pg (25-35) Mean Corpuscular Hemoglobin Concent 34 g/dL (31-37) Red Cell Distribution Width 14.0 % (11.5-14.5) Platelet Count 260 x10^3/uL (140-400) Neutrophils (%) (Auto) 64 % (31-73) Lymphocytes (%) (Auto) 26 % (24-48) Monocytes (%) (Auto) 8 % (0-9) Eosinophils (%) (Auto) 2 % (0-3) Basophils (%) (Auto) 1 % (0-3) Neutrophils # (Auto) 5.7 x10^3/uL (1.8-7.7) Lymphocytes # (Auto) 2.3 x10^3/uL (1.0-4.8) Monocytes # (Auto) 0.7 x10^3/uL (0.0-1.1) Eosinophils # (Auto) 0.2 x10^3/uL (0.0-0.7) Basophils # (Auto) 0.1 x10^3/uL (0.0-0.2) Sodium Level 139 mmol/L (136-145) Potassium Level 3.6 mmol/L (3.5-5.1) Chloride Level 101 mmol/L (98-107) Carbon Dioxide Level 27 mmol/L (21-32) Anion Gap 11 (6-14) Blood Urea Nitrogen 14 mg/dL (8-26) Creatinine 0.8 mg/dL (0.7-1.3) Estimated GFR (Cockcroft-Gault) 116.9 BUN/Creatinine Ratio 18 (6-20) Glucose Level 92 mg/dL (70-99) Calcium Level 8.5 mg/dL (8.5-10.1) Total Bilirubin 0.3 mg/dL (0.2-1.0) Aspartate Amino Transf (AST/SGOT) 16 U/L (15-37) Alanine Aminotransferase (ALT/SGPT) 15 U/L (16-63) Alkaline Phosphatase 72 U/L (46-116) Total Protein 7.2 g/dL (6.4-8.2) Albumin 3.3 g/dL (3.4-5.0) Albumin/Globulin Ratio 0.8 (1.0-1.7) Physical Exam HEENT: Neck Supple W Full Motion Chest: Symmetric LUNGS: Clear to Auscultation Heart: S1S2, RRR (SR) Abdomen: Soft N/T Extremities: No Edema, No Calf Tenderness Neurology: alert, oriented, follow commands Assessment Assessment 1. Atypical CP: possibly MSK 2. Chronic systolic heart failure: compensated 3. NICM: s/p Medtronic AICD. LVEF 10% 4. Hypertension: controlled 5. Severe noncompliance 6. Small right atrial mobile mass Recommendations 1. Continue with secondary prevention measures. torsemide, aldactone, BB 2. Low dose entresto. HBPM 3. Follow up in 3-4 weeks. Discussed lifestyle modifications and compliance. 4. 2L FR. daily wt. Low Na diet 5. 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 6. Disability paperwork pending 7. Will need JELANI or cardiac MRI as an outpt. Discussed significantly to follow up 8. eliquis for PE prevention with noted RA mass JORGE ADAMS MD 04/13/192050: CARDIO Progress Notes Assessment Assessment Patient seen and examined. Agree with PROVIDER RELATIONS MANAGER's assessment and plan. Chr systolic HF compensated CP atypical and most prob musculoskeletal 2D echo with small right atrial thrombus noted - patient is not septic Agree with eliquis for anticoagulation and repeat echo/JELANI in 2-3 months PEYTON ALEMAN APRN Apr 13, 2019 16:20 JORGE ADAMS MD Apr 13, 2019 20:51
[2019-04-13] MEDS ORDERED: APIX5TAB PO (17:07)
--- NOTE | 2019-04-13 19:33 | NUR ---
Discharge Note: HERIBERTO STEEN Discharge instructions and discharge home medications reviewed with Patient and a copy given. All questions have been answered and understanding verbalized. Cardiology gave patient multiple medication samples as well as free 30 day medication card. Pt verbalized understanding to follow up with Dr. Manzo as well as [facility]'s transplant. Pt discharged via wheelchair.
[2019-04-13] MEDS ORDERED: APIXABAN 5 MG TABLET. PO SCH (21:00)
[2019-04-13] MEDS ORDERED: LACTOBACILLUS RHAMNOSUS GG 1 CAPSULE. PO SCH (21:00)
== END 2019-04-13 19:37 | disposition home or self-care (01) | DRG 293 ==
LOC: ER 23:44 → 2 SOUTH 04-12 02:33
PROVIDERS: ADMIT Internal Medicine; ATTEND Internal Medicine
DX: I11.0 Hypertensive heart disease with heart failure (principal); E87.6 Hypokalemia; I50.43 Acute on chronic combined systolic (congestive) and diastolic (congestive) heart failure; I42.8 Other cardiomyopathies; F32.9 Major depressive disorder, single episode, unspecified; I51.3 Intracardiac thrombosis, not elsewhere classified; R09.02 Hypoxemia; Z91.19 Patient's noncompliance with other medical treatment and regimen
CPT/HCPCS: 36415; 71045; 80048; 80053; 83735; 83880; 84484; 85025; 93005; 94618; C8929; 99285-25; G0378